=== PATIENT | female | born 1970 | race Caucasian/White ===

== ENCOUNTER 2019-07-02 15:03 | Emergency (ER) | payer BC ==
[2019-07-02 15:08] VITALS: BP 159/90; PULSE 91; RESP 20; TEMP 97.9
[2019-07-02] MEDS ORDERED: PENICILLIN VK 500MG STARTER 4 TAB BTL PO STA (15:17)
--- NOTE | 2019-07-02 15:18 | ED ---
General Adult HPI - General Chief complaint: Dental/Oral Stated complaint: Facial Swelling Time Seen by Provider: 07/02/19 15:10 Source: patient, RN notes reviewed Mode of arrival: ambulatory Limitations: no limitations - History of Present Illness Initial comments: 48-year-old female presents to the emergency department for a chief complaint of right-sided dental pain. This started yesterday. Patient states she woke up today however and it was swollen. Denies fever or chills. Denies swelling under the tongue. Denies difficulty swallowing. Denies any neck stiffness.Patient has no other complaints at this time including shortness of breath, chest pain, abdominal pain, nausea or vomiting, headache, or visual changes. - Related Data Previous Rx's Medication Instructions Recorded Penicillin V Potassium [Pen Vee K] 500 mg PO Q6H 10 Days #40 tablet 07/02/19 Allergies Allergy/AdvReac Type Severity Reaction Status Date / Time codeine Allergy Nausea & Verified 07/02/19 15:08 Vomiting & Diarrhea Review of Systems ROS Statement: Those systems with pertinent positive or pertinent negative responses have been documented in the HPI. ROS Other: All systems not noted in ROS Statement are negative. Past Medical History Past Medical History: Cancer History of Any Multi-Drug Resistant Organisms: None Reported Past Surgical History: Breast Surgery Past Psychological History: Anxiety Smoking Status: Current every day smoker Past Alcohol Use History: None Reported Past Drug Use History: Marijuana General Exam Limitations: no limitations General appearance: alert, in no apparent distress Head exam: Present: atraumatic, normocephalic, normal inspection Eye exam: Present: normal appearance, PERRL, EOMI. Absent: scleral icterus, conjunctival injection, periorbital swelling ENT exam: Present: normal exam, mucous membranes moist, TM's normal bilaterally, normal external ear exam, other (patient has a an area of local edema along the R side mandible). Absent: normal oropharynx (tooth 29 tenderness. There is no abscess palpated.) Neck exam: Present: normal inspection, full ROM. Absent: tenderness, meningismus Respiratory exam: Present: normal lung sounds bilaterally. Absent: respiratory distress, wheezes, rales, rhonchi, stridor Cardiovascular Exam: Present: regular rate, normal rhythm, normal heart sounds. Absent: systolic murmur, diastolic murmur, rubs, gallop, clicks Neurological exam: Present: alert Psychiatric exam: Present: normal affect, normal mood Course Vital Signs 07/02/19 15:05 Temperature 97.9 F Pulse Rate 91 Respiratory 20 Rate Blood Pressure 159/90 O2 Sat by Pulse 97 Oximetry Medical Decision Making - Medical Decision Making 48-year-old female presents for right-sided dental pain. Patient has had this pain since yesterday. Noticed swelling today. On examination patient has tenderness to tooth 29 however no abscess is palpated along the gumline. There is no sublingual edema. No neck stiffness. No trismus. Patient was started on penicillin. She was given a dose here in the emergency department. I did discuss that if symptoms do not improve within 24-48 hours she needs to return to the emergency department. Otherwise she is to follow-up with her doctor and dentist as soon as possible.I discussed this case with attending Dr. Lopez who agrees with this assessment and treatment plan. Disposition Clinical Impression: Pain, dental Disposition: HOME SELF-CARE Condition: Good Instructions (If sedation given, give patient instructions): Toothache (ED) Additional Instructions: Please take penicillin as directed. Follow-up with dentist in 1-2 days. Take Motrin and tylenol for pain. Ice the area. Return to the emergency department if you develop any worsening symptoms, high fevers, or symptoms are not improving after 48 hours of antibiotic therapy. Prescriptions: Penicillin V Potassium [Pen Vee K] 500 mg PO Q6H 10 Days #40 tablet Is patient prescribed a controlled substance at d/c from ED?: No Referrals: Sunday May MD [Primary Care Provider] - 1-2 days Time of Disposition: 15:17
== END 2019-07-02 15:25 | disposition home or self-care (01) ==
LOC: EC 15:03
DX: K08.89 Other specified disorders of teeth and supporting structures (principal); R22.0 Localized swelling, mass and lump, head; F17.200 Nicotine dependence, unspecified, uncomplicated; Z88.5 Allergy status to narcotic agent; Z85.3 Personal history of malignant neoplasm of breast; Z98.890 Other specified postprocedural states
CPT/HCPCS: 99283

== ENCOUNTER 2019-07-02 19:08 | Observation (INO) | payer BC ==
[2019-07-02] MEDS ORDERED: KETOROLAC 30 MG/ML 1 ML VIAL IVP STA (20:31)
--- NOTE | 2019-07-02 20:37 | ED ---
Recheck HPI - General Chief Complaint: Recheck/Abnormal Lab/Rx Stated Complaint: facial swelling-revisit Time Seen by Provider: 07/02/19 20:25 Source: patient, RN notes reviewed Mode of arrival: ambulatory Limitations: no limitations - History of Present Illness Initial Comments: Is a 48-year-old female who was here earlier today and diagnosed with a dental infection who took 2 doses of her penicillin less far but states the pain is getting worse and this was getting worse and also she's having some trouble because of pain in her throat now radiating down her around to her neck on the right side. She's had some chills no overt fevers sweats she states she had a filling that fell out of a tooth the tooth cracked she has not had any trouble until last day or so. The current modifying factors at this time - Related Data Home Medications Medication Instructions Recorded Confirmed Acetaminophen Tab [Tylenol Tab] 1,000 mg PO Q4H PRN 07/02/19 07/02/19 Previous Rx's Medication Instructions Recorded Penicillin V Potassium [Pen Vee K] 500 mg PO Q6H 10 Days #40 tablet 07/02/19 Allergies Allergy/AdvReac Type Severity Reaction Status Date / Time codeine AdvReac Nausea & Verified 07/02/19 22:56 Vomiting & Diarrhea Review of Systems ROS Statement: Those systems with pertinent positive or pertinent negative responses have been documented in the HPI. ROS Other: All systems not noted in ROS Statement are negative. Past Medical History Past Medical History: Cancer Additional Past Medical History / Comment(s): Breast CA stage 4 History of Any Multi-Drug Resistant Organisms: None Reported Past Surgical History: Breast Surgery Past Psychological History: Anxiety Smoking Status: Current every day smoker Past Alcohol Use History: None Reported Past Drug Use History: Marijuana General Exam - General Exam Comments Initial Comments: This is a well-developed asthenic appearing female who is awake alert oriented 3 Limitations: no limitations General appearance: alert, anxious, in distress Head exam: Present: atraumatic, normocephalic, normal inspection Eye exam: Present: normal appearance, PERRL, EOMI. Absent: scleral icterus, conjunctival injection, periorbital swelling ENT exam: Present: other (No discrete abscess is seen there is marked erythema and tenderness around tooth number fracture she had a tooth #30 no overt drainage. Erythema seen to the right mandible with tenderness palpation does seem to incorporate the submandibular space) Neck exam: Present: tenderness, full ROM, lymphadenopathy, other (No stridor JVD or bruits) Respiratory exam: Present: normal lung sounds bilaterally. Absent: respiratory distress, wheezes, rales, rhonchi, stridor Cardiovascular Exam: Present: regular rate, normal rhythm, normal heart sounds. Absent: systolic murmur, diastolic murmur, rubs, gallop, clicks GI/Abdominal exam: Present: soft, normal bowel sounds. Absent: distended, tenderness, guarding, rebound, rigid Extremities exam: Present: normal inspection, full ROM, normal capillary refill. Absent: tenderness, pedal edema, joint swelling, calf tenderness Back exam: Present: normal inspection Neurological exam: Present: alert, oriented X3, CN II-XII intact Psychiatric exam: Present: normal affect, normal mood Skin exam: Present: warm, dry, intact, normal color. Absent: rash Course Vital Signs 07/02/19 07/02/19 20:01 23:15 Temperature 99.7 F H 99.5 F Pulse Rate 90 84 Respiratory 18 18 Rate Blood Pressure 135/82 134/72 O2 Sat by Pulse 99 97 Oximetry Medical Decision Making - Medical Decision Making I did discuss Pf[employer] the patient and family as well as with Dr. Vick patient will be admitted place an IV antibiotics fluids as well as consultation by oral surgery. - Lab Data Result diagrams: 07/02/19 21:10 07/02/19 21:10 Lab Results 07/02/19 07/02/19 07/02/19 Range/Units 21:10 21:10 21:10 WBC 15.8 H (3.8-10.6) k/uL RBC 4.45 (3.80-5.40) m/uL Hgb 14.4 (11.4-16.0) gm/dL Hct 44.0 (34.0-46.0) % MCV 98.9 (80.0-100.0) fL MCH 32.3 (25.0-35.0) pg MCHC 32.7 (31.0-37.0) g/dL RDW 12.3 (11.5-15.5) % Plt Count 304 (150-450) k/uL Neutrophils % 85 % Lymphocytes % 8 % Monocytes % 4 % Eosinophils % 1 % Basophils % 0 % Neutrophils # 13.4 H (1.3-7.7) k/uL Lymphocytes # 1.3 (1.0-4.8) k/uL Monocytes # 0.7 (0-1.0) k/uL Eosinophils # 0.2 (0-0.7) k/uL Basophils # 0.0 (0-0.2) k/uL Sodium 137 (137-145) mmol/L Potassium 4.2 (3.5-5.1) mmol/L Chloride 103 (98-107) mmol/L Carbon Dioxide 25 (22-30) mmol/L Anion Gap 9 mmol/L BUN 10 (7-17) mg/dL Creatinine 0.74 (0.52-1.04) mg/dL Est GFR (CKD-EPI)AfAm >90 (>60 ml/min/1.73 sqM) Est GFR (CKD-EPI)NonAf >90 (>60 ml/min/1.73 sqM) Glucose 105 H (74-99) mg/dL Plasma Lactic Acid Benny 1.0 (0.7-2.0) mmol/L Calcium 10.0 (8.4-10.2) mg/dL Total Bilirubin 0.8 (0.2-1.3) mg/dL AST 23 (14-36) U/L ALT 12 (4-34) U/L Alkaline Phosphatase 79 (38-126) U/L Total Protein 7.7 (6.3-8.2) g/dL Albumin 4.7 (3.5-5.0) g/dL - Radiology Data Radiology results: report reviewed, image reviewed (I did review the imaging and report no evidence of abscess or is evidence of cellulitis) Disposition Clinical Impression: Facial cellulitis, Gingivitis, Fractured tooth, Failure of outpatient treatment Disposition: ADMITTED IP TO THIS [facility] Condition: Fair Referrals: Sunday May MD [Primary Care Provider] - 1-2 days
[2019-07-02 21:33] LABS: Basophils % (A) 0 %; Eosinophils # (A) 0.2 k/uL (0-0.7); Eosinophils % (A) 1 %; HGB 14.4 gm/dL (11.4-16.0); Lymphocytes # (A) 1.3 k/uL (1.0-4.8); Lymphocytes % (A) 8 %; MCH 32.3 pg (25.0-35.0); MCHC 32.7 g/dL (31.0-37.0); MCV 98.9 fL (80.0-100.0); Mean Platelet Volume 7.5; Monocytes # (A) 0.7 k/uL (0-1.0); Monocytes % (A) 4 %; Neutrophils # (A) 13.4 k/uL (1.3-7.7); Neutrophils % (A) 85 %; Platelet Count 304 k/uL (150-450); RBC 4.45 m/uL (3.80-5.40); RDW 12.3 % (11.5-15.5); WBC 15.8 k/uL (3.8-10.6)
[2019-07-02 21:38] LABS: ALT 12 U/L (4-34); AST 23 U/L (14-36); African American GFR (CKD) >90 (>60 ml/min/1.73 sqM); Albumin 4.7 g/dL (3.5-5.0); Alkaline Phosphatase 79 U/L (38-126); Anion Gap 9 mmol/L; Blood Urea Nitrogen 10 mg/dL (7-17); Carbon Dioxide 25 mmol/L (22-30); Chloride 103 mmol/L (98-107); Glucose 105 mg/dL (74-99); Non-African American GFR(CKD) >90 (>60 ml/min/1.73 sqM); Potassium 4.2 mmol/L (3.5-5.1); Sodium 137 mmol/L (137-145); Total Bilirubin 0.8 mg/dL (0.2-1.3); Total Protein 7.7 g/dL (6.3-8.2)
--- NOTE | 2019-07-02 22:52 | CT ---
EXAMINATION TYPE: CT facial bones wo con DATE OF EXAM: 07/02/2019 COMPARISON: None HISTORY: swelling to right side of jaw CT DLP: 363.2 mGycm Automated exposure control for dose reduction was used. Multiple axial sections were obtained from the top of the frontal sinuses to the bottom of the mandib le without contrast. There is soft tissue swelling in the right submandibular region. There are enlarged lymph nodes that measure up to 1 cm. There is subcutaneous edema in the right submandibular region. The submandibular salivary glands are fairly symmetric. The parotid glands are fairly symmetric. The mandibular ring is intact. I see no bony destructive process. Temporomandibular joints appear nor mal. There is almost complete opacification of the right maxillary sinus. There is no evidence of a b lowout fracture. Orbital margins are intact. There is no evidence of retro-orbital mass. The nasal carl ne is intact. There is some mucosal thickening in the ethmoid sinuses. Left maxillary sinus is fairly normal. The maxilla is intact. I see no focal bone destruction. There is normal aeration of the mast oid sinuses. IMPRESSION: There is right side submandibular lymphadenopathy and subcutaneous edema consistent with cellulitis. No focal bone destruction. No evidence of an abscess. Right maxillary sinusitis and mild ethmoid sinusitis.
[2019-07-02] MEDS ORDERED: NALOXONE 0.4 MG/ML 1 ML VIAL IV PRN (23:29)
[2019-07-03] MEDS ORDERED: IBUPROFEN 400 MG TAB PO PRN
[2019-07-03] MEDS: SODIUM CHLORIDE 0.9% 1,000 ML IV SCH ×3 (01:38→16:01)
[2019-07-03] MEDS: KETOROLAC 30 MG/ML 1 ML VIAL IVP SCH ×3 (08:28→22:33)
[2019-07-03] MEDS ORDERED: IPRATROPIUM-ALBUTEROL 3 ML NEB INHALATION PRN (09:38)
[2019-07-03] MEDS: AMPICILLIN-SULBACTAM 3 GM in SODIUM CHLORIDE 0.9% 100 ML IVPB SCH ×2 (10:37→17:14)
--- NOTE | 2019-07-03 13:12 | P.HPIM ---
History of Present Illness H&P Date: 07/03/19 Chief Complaint: facial swelling and pain This is a 48-year-old female patient of Dr. Gilliland with past medical history of breast cancer stage IV status post lumpectomy, chemotherapy and radiation in 2007, tobacco use and dependence. Patient states that she lost all of her upper teeth during chemotherapy treatment. She denies having any significant problems with her teeth recently but noticed that she had a toothache since Monday. She was taking Tylenol and Motrin. She woke up yesterday and she has significant swelling and pain was significantly worse to t he right lower jaw area. She came into the emergency center was given prescription for penicillin and was discharged home. By 6 in the morning her swelling and pain became much worse she was having chills and she came back to the emergency center for evaluation. Patient has been afebrile, vital signs stable, pulse ox 99% on room air. WBC 15.8 otherwise lab work unremarkable. Lactic acid 1. CAT scan of the facial bones revealed a right side submandibular lymphadenopathy and subcutaneous edema consistent with cellulitis. No focal bone destruction. No evidence of an abscess. Patient was initially started on Kefzol which we have transitioned to Unasyn and patient is waiting for [facility] bed. Patient is seen today in the emergency center. Review of Systems Constitutional: Reports chills, Reports fatigue, Reports fever, Reports lethargy, Reports malaise, Reports poor appetite Eyes: denies blurred vision, denies pain Ears, nose, mouth and throat: Reports dental pain, Reports mouth pain, Reports swelling in mouth, Denies dysphagia, Denies nasal congestion, Denies nasal discharge, Denies vertigo Cardiovascular: Denies chest pain, Denies decreased exercise tolerance, Denies dyspnea on exertion, Denies leg edema, Denies lightheadedness, Denies shortness of breath, Denies syncope Respiratory: Reports wheezing, Denies cough, Denies cough with sputum, Denies dyspnea, Denies excessive sputum, Denies hemoptysis, Denies home oxygen, Denies respiratory infections Gastrointestinal: Denies abdominal pain, Denies diarrhea, Denies nausea, Denies vomiting Genitourinary: Denies dysuria, Denies hematuria, Denies urgency, Denies urinary frequency Musculoskeletal: Denies frequent falls, Denies gait dysfunction, Denies myalgias Integumentary: Denies pruritus, Denies rash Neurological: Denies numbness, Denies weakness Psychiatric: Denies anxiety, Denies depression Past Medical History Past Medical History: Cancer Additional Past Medical History / Comment(s): Breast CA stage 4 History of Any Multi-Drug Resistant Organisms: None Reported Past Surgical History: Breast Surgery Additional Past Surgical History / Comment(s): Lumpectomy in 2008 status post ch emotherapy and radiation therapy. Past Psychological History: Anxiety Smoking Status: Current every day smoker Past Alcohol Use History: None Reported Additional Past Alcohol Use History / Comment(s): Patient is a smoker of more than 1 pack per day for greater than 30 years. She uses marijuana on a daily basis. She denies any street drug use or alcohol use. She lives at home with her . She is unemployed. Past Drug Use History: Marijuana - Past Family History Father Family Medical History: Cancer Additional Family Medical History / Comment(s): Father at age 70 due to Kidney cancer. Parkinsons Hx. Mother Additional Family Medical History / Comment(s): Mother is alive at age 80 with no major medical problems. Brother(s) Additional Family Medical History / Comment(s): Patient has one brother with history of asthma. Patient does not have any sisters. Patient doesn't have any children. Medications and Allergies Home Medications Medication Instructions Recorded Confirmed Type Acetaminophen Tab [Tylenol Tab] 1,000 mg PO Q4H PRN 07/02/19 07/02/19 History Penicillin V Potassium [Pen Vee K] 500 mg PO Q6H 10 Days #40 tablet 07/02/19 07/02/19 Rx Allergies Allergy/AdvReac Type Severity Reaction Status Date / Time codeine AdvReac Nausea & Verified 07/02/19 22:56 Vomiting & Diarrhea Physical Exam Vitals: Vital Signs Temp Pulse Pulse Resp BP BP Pulse Ox 07/03/19 08:00 98.5 F 86 16 131/89 07/03/19 04:00 99.7 F H 86 17 142/79 97 07/02/19 23:15 99.5 F 84 18 134/72 97 07/02/19 20:01 99.7 F H 90 18 135/82 99 Intake and Output 07/02/19 07/03/19 07/03/19 22:59 06:59 14:59 Other: Voiding Method Toilet Weight 47.627 kg Gen: This is a thin 48-year-old female. She is resting on his bed in the hallway in the emergency center. She appears to be somewhat uncomfortable due to pain in the jaw area. HEENT: Head is atraumatic, normocephalic. Pupils equal, round. Sclerae is anicteric. Conjunctiva pink. Mucous membranes of the mouth are moist. Patient has significant swelling to the right posterior mandibular area. No drainage or open wounds are noted. Patient is edentulous on the top. NECK: Supple. No JVD. No lymphadenopathy. No thyromegaly. LUNGS: Scattered rhonchi and expiratory wheeze. No intercostal retractions. HEART: Regular rate and rhythm. No murmur. ABDOMEN: Soft. Bowel sounds are present. No masses. No tenderness. EXTREMITIES: No pedal edema. No calf tenderness. Dorsalis pedis +2 bilaterally. NEUROLOGICAL: Patient is awake, alert and oriented x3. Cranial nerves 2 through 12 are grossly intact. Results CBC & Chem 7: 07/02/19 21:10 07/02/19 21:10 Labs: Abnormal Lab Results - Last 24 Hours (Table) 07/02/19 07/02/19 Range/Units 21:10 21:10 WBC 15.8 H (3.8-10.6) k/uL Neutrophils # 13.4 H (1.3-7.7) k/uL Glucose 105 H (74-99) mg/dL Thrombosis Risk Factor Assmnt - DVT/VTE Prophylaxis DVT/VTE Prophylaxis: Pharmacologic Prophylaxis ordered Assessment and Plan Plan: 1. Cellulitis of the right submandibular area. No drainable abscess found on CAT scan. Consult with oral surgeon. Antibiotics changed to Unasyn. Patient will be started on a soft diet as tolerated. Continue Toradol IV scheduled for pain. 2. History of stage IV breast cancer status post lumpectomy, chemotherapy and radiation therapy, stable. 3. Tobacco use and dependence of greater than [id number] history. Patient denies need for nicotine patch. Dual treatments ordered as needed. 4. Daily marijuana use, stable. 5. GI prophylaxis. Pepcid. 6. DVT prophylaxis. Heparin subcu. Patient placed as an observation status. Discharge plan: Return home Impression and plan of care have been directed as dictated by the signing physi cian. Francie Felipe nurse practitioner acting as scribe for signing physician.
[2019-07-03] MEDS: DEXAMETHASONE SOD PHOSPHATE 10 MG/ML 1 ML VIAL IV SCH (18:11)
--- NOTE | 2019-07-03 22:05 | CONS ---
CONSULTATION DATE OF CONSULT: 07/03/2019. CHIEF COMPLAINT: My face is swollen. HISTORY OF PRESENT ILLNESS: The patient is a 48-year-old female who states that she had a toothache in the lower right jaw approximately 3 days ago, which slowly increased and yesterday she woke up with swelling to the right mandible which progressed. She then presented to the emergency room where she was evaluated and admitted. The patient states that the area had increased in severity rather quickly. She is complaining of odynophagia. She is currently afebrile. PAST MEDICAL HISTORY: Significant for breast cancer treated in 2007. MEDICATIONS: Currently she is on IV Unasyn. ALLERGIES: Allergies none. PHYSICAL EXAM: The patient is resting in bed comfortably. Her vital signs are stable. She is afebrile. She is alert and oriented x3. Head and neck examination reveals moderate soft tissue swelling of the right mandible which is extending into the submandibular region. The area is tender to palpation. It is firm. There is no fluctuance. Intraorally, tooth #30 has a large carious lesion and there is a buccal vestibular swelling in addition to swelling in the floor of the mouth. The pharyngeal exam is limited, however, there does not appear to be any deviation of the uvula. A CT scan reveals cellulitis of the right mandibular and submandibular region without any focal collection. Her white count is 15.8. ASSESSMENT: 1. Abscessed tooth #30. 2. Right buccal and submandibular space cellulitis. PLAN: The patient is to apply heat to the area. She is to be on a soft diet and continue on the IV Unasyn. I have ordered Decadron 10 mg IV push q.8 hours x3. The patient will be re-evaluated tomorrow. I anticipate discharge on Monday directly to my office for the extraction of tooth #30. MMODL / IJN: [id number] /
[2019-07-03] MEDS: HEPARIN SODIUM,PORCINE 5,000 UNIT/ML 1 ML VIAL SQ SCH (22:35)
[2019-07-04] MEDS: AMPICILLIN-SULBACTAM 3 GM in SODIUM CHLORIDE 0.9% 100 ML IVPB SCH ×3 (00:58→15:44)
[2019-07-04] MEDS: DEXAMETHASONE SOD PHOSPHATE 10 MG/ML 1 ML VIAL IV SCH ×2 (01:02→07:40)
[2019-07-04] MEDS: KETOROLAC 30 MG/ML 1 ML VIAL IVP SCH ×4 (02:18→23:00)
[2019-07-04] MEDS: FAMOTIDINE 20 MG TAB PO SCH (07:39)
[2019-07-04] MEDS: HEPARIN SODIUM,PORCINE 5,000 UNIT/ML 1 ML VIAL SQ SCH ×2 (07:40→23:00)
[2019-07-04 08:46] LABS: MCHC 32.6 g/dL (31.0-37.0); MCV 101.2 fL (80.0-100.0); Mean Platelet Volume 7.4; Platelet Count 321 k/uL (150-450); RBC 4.25 m/uL (3.80-5.40); RDW 12.4 % (11.5-15.5)
[2019-07-04] MEDS: SODIUM CHLORIDE 0.9% 1,000 ML IV SCH (12:02)
--- NOTE | 2019-07-04 16:03 | P.PN ---
Subjective Progress Note Date: 07/04/19 This is a 48-year-old female patient of Dr. Gilliland with past medical history of breast cancer stage IV status post lumpectomy, chemotherapy and radiation in 2007, tobacco use and dependence. Patient states that she lost all of her upper teeth during chemotherapy treatment. She denies having any significant problems with her teeth recently but noticed that she had a toothache since Monday. She was taking Tylenol and Motrin. She woke up yesterday and she has significant swelling and pain was significantly worse to the right lower jaw area. She came into the emergency center was given pr escription for penicillin and was discharged home. By 6 in the morning her swelling and pain became much worse she was having chills and she came back to the emergency center for evaluation. Patient has been afebrile, vital signs stable, pulse ox 99% on room air. WBC 15.8 otherwise lab work unremarkable. Lactic acid 1. CAT scan of the facial bones revealed a right side submandibular lymphadenopathy and subcutaneous edema consistent with cellulitis. No focal bone destruction. No evidence of an abscess. Patient was initially started on Kefzol which we have transitioned to Unasyn and patient is waiting for [facility] bed. Patient is seen today in the emergency center. 07/04: Patient has been seen by Dr. Conklin with recommendations continue another 24 hours of IV antibiotics and he is planning for extraction of a tooth on Monday in the office. He is also place the patient on Decadron and continue soft diet. Blood culture showing coag negative staph which is a contamination. Repeat lab work reveals white count of 15. She has been afebrile, heart rate 85, blood pressure 131/71 pulse ox 96% on room air. Patient has had significant improvement of the facial swelling since first evaluated in the emergency center. Anticipate discharge home tomorrow as planned with oral surgeon with follow-up in the office. Review of Systems Constitutional: Reports chills, Reports fatigue, Reports fever, Reports lethargy, Reports malaise, Reports poor appetite Eyes: denies blurred vision, denies pain Ears, nose, mouth and throat: Reports dental pain improving, Reports mouth pain, Reports swelling in mouth, Denies dysphagia, Denies nasal congestion, Denies nasal discharge, Denies vertigo Cardiovascular: Denies chest pain, Denies decreased exercise tolerance, Denies dyspnea on exertion, Denies leg edema, Denies lightheadedness, Denies shortness of breath, Denies syncope Respiratory: Reports wheezing, Denies cough, Denies cough with sputum, Denies dyspnea, Denies excessive sputum, Denies hemoptysis, Denies home oxygen, Denies respiratory infections Gastrointestinal: Denies abdominal pain, Denies diarrhea, Denies nausea, Denies vomiting Genitourinary: Denies dysuria, Denies hematuria, Denies urgency, Denies urinary frequency Musculoskeletal: Denies frequent falls, Denies gait dysfunction, Denies myalgias Integumentary: Denies pruritus, Denies rash Neurological: Denies numbness, Denies weakness Psychiatric: Denies anxiety, Denies depression Objective - Vital Signs Vital signs: Vital Signs Temp 98.0 F 07/04/19 14:24 Pulse 85 07/04/19 14:24 Resp 17 07/04/19 14:24 BP 131/71 07/04/19 14:24 Pulse Ox 96 07/04/19 14:24 Intake & Output 07/03/19 07/04/19 07/04/19 18:59 06:59 18:59 Intake Total 710 700 500 Balance 710 700 500 Weight 47.627 kg Intake: IV 500 500 Ampicillin-Sulbactam 3 gm 100 100 In Sodium Chloride 0.9% 100 ml @ 200 mls/hr IVPB Q8HR [facility] Rx#:[id number] Sodium Chloride 0.9% 1, 400 400 000 ml @ 50 mls/hr IV . Q20H [facility] Rx#:[id number] Intake, IV Titration 710 Amount Ampicillin-Sulbactam 3 gm 100 In Sodium Chloride 0.9% 100 ml @ 200 mls/hr IVPB Q8HR [facility] Rx#:[id number] Sodium Chloride 0.9% 1, 560 000 ml @ 80 mls/hr IV . [id number] [facility] Rx#:[id number] ceFAZolin 1,000 mg In 50 Sodium Chloride 0.9% 50 ml @ 100 mls/hr IVPB Q6H [facility] Rx#:[id number] Oral 200 Other: Voiding Method Toilet Toilet Toilet # Voids 1 - Exam Gen: This is a thin 48-year-old female. She is resting in bed in her room and appears to be comfortable.. HEENT: Head is atraumatic, normocephalic. Pupils equal, round. Sclerae is anicteric. Conjunctiva pink. Mucous membranes of the mouth are moist. Swelling to the right mandibular submandibular region is much improved from . NECK: Supple. No JVD. No lymphadenopathy. No thyromegaly. LUNGS: Scattered rhonchi and expiratory wheeze. No intercostal retractions. HEART: Regular rate and rhythm. No murmur. ABDOMEN: Soft. Bowel sounds are present. No masses. No tenderness. EXTREMITIES: No pedal edema. No calf tenderness. Dorsalis pedis +2 bilaterally. NEUROLOGICAL: Patient is awake, alert and oriented x3. Cranial nerves 2 through 12 are grossly intact. - Labs CBC & Chem 7: 07/04/19 08:23 07/02/19 21:10 Labs: Abnormal Lab Results - Last 24 Hours (Table) 07/04/19 Range/Units 08:23 WBC 15.0 H (3.8-10.6) k/uL MCV 101.2 H (80.0-100.0) fL Microbiology - Last 24 Hours (Table) 07/02/19 21:10 Blood Culture - Final Blood 07/02/19 21:10 Blood Culture Gram Stain - Preliminary Blood Blood Culture - Preliminary Coagulase Negative Staph Assessment and Plan Plan: 1. Cellulitis of the right submandibular area. No drainable abscess found on CAT scan. Consult with oral surgeon appreciated. Continue Unasyn. Patient will be started on a soft diet as tolerated. Continue Toradol IV scheduled for pain. 2. History of stage IV breast cancer status post lumpectomy, chemotherapy and radiation therapy, stable. 3. Tobacco use and dependence of greater than 88-[id number] history. Patient denies need for nicotine patch. Dual treatments ordered as needed. 4. Daily marijuana use, stable. 5. GI prophylaxis. Pepcid. 6. DVT prophylaxis. Heparin subcu. Discharge plan: Return home on Monday Impression and plan of care have been directed as dictated by the signing physician. Francie Felipe nurse practitioner acting as scribe for signing physician.
[2019-07-05] MEDS: AMPICILLIN-SULBACTAM 3 GM in SODIUM CHLORIDE 0.9% 100 ML IVPB SCH ×2 (00:36→08:30)
[2019-07-05] MEDS: KETOROLAC 30 MG/ML 1 ML VIAL IVP SCH ×2 (04:44→08:31)
[2019-07-05 04:57] VITALS: BP 147/87; PULSE 70; RESP 18; TEMP 98.2
[2019-07-05] MEDS: SODIUM CHLORIDE 0.9% 1,000 ML IV SCH (06:22)
--- NOTE | 2019-07-05 08:24 | P.DS ---
Providers Date of admission: 07/04/19 09:02 Expected date of discharge: 07/05/19 Attending physician: Adrianne Vick Consults: 07/02/19 23:29 Consult Physician Routine Consulting Provider: Benito Conklin Consult Reason/Comments: Tooth fracture, gingivitis, facial cellulitis Do you want consulting provider notified?: Yes, Notify in am Primary care physician: [facility] Course: This is a 48-year-old female patient of Dr. Gilliland with past medical history of breast cancer stage IV status post lumpectomy, chemotherapy and radiation in 2007, tobacco use and dependence. Patient states that she lost all of her upper teeth during chemotherapy treatment. She denies having any significant problems with her teeth recently but noticed that she had a tooth ache since Monday. She was taking Tylenol and Motrin. She woke up yesterday and she has significant swelling and pain was significantly worse to the right lower jaw area. She came into the emergency center was given prescription for penicillin and was discharged home. By 6 in the morning her swelling and pain became much worse she was having chills and she came back to the emergency center for evaluation. Patient has been afebrile, vital signs stable, pulse ox 99% on room air. WBC 15.8 otherwise lab work unremarkable. Lactic acid 1. CAT scan of the facial bones revealed a right side submandibular lymphadenopathy and subcutaneous edema consistent with cellulitis. No focal bone destruction. No evidence of an abscess. Patient was initially started on Kefzol which we have transitioned to Unasyn and patient is waiting for [facility] bed. Patient is seen today in the emergency center. 07/04: Patient has been seen by Dr. Conklin with recommendations continue another 24 hours of IV antibiotics and he is planning for extraction of a tooth on Monday in the office. He is also place the patient on Decadron and continue soft diet. Blood culture showing coag negative staph which is a contamination. Repeat lab work reveals white count of 15. She has been afebrile, heart rate 85, blood pressure 131/71 pulse ox 96% on room air. Patient has had significant improvement of the facial swelling since first evaluated in the emergency center. Anticipate discharge home tomorrow as planned with oral surgeon with follow-up in the office. 07/05: Patient has been afebrile, heart rate 70, blood pressure 147/87, pulse ox 100% on room air. Patient has been seen by Dr. Conklin with plan for him to extract tooth in the office today. Patient will be discharged home today in stable condition. Discharge diagnoses: 1. Cellulitis of the right submandibular area secondary to abscessed tooth. 2. History of stage IV breast cancer status post lumpectomy, chemotherapy and radiation therapy, stable. 3. Tobacco use and dependence of greater than 67-lfua-otad history. 4. Daily marijuana use, stable. Discharge plan: Home today with follow-up at Dr. Conklin's office this morning. Impression and plan of care have been directed as dictated by the signing physician. Francie Felipe nurse practitioner acting as scribe for signing physician. Patient Condition at Discharge: Fair Plan - Discharge Summary Discharge Rx Participant: No New Discharge Prescriptions: New Amoxicillin/Potassium Clav [Augmentin 875-125 Tablet] 1 each PO Q12HR #10 tab Discontinued Penicillin V Potassium [Pen Vee K] 500 mg PO Q6H 10 Days #40 tablet No Action Acetaminophen Tab [Tylenol Tab] 1,000 mg PO Q4H PRN PRN Reason: Pain Discharge Medication List Acetaminophen Tab [Tylenol Tab] 1,000 mg PO Q4H PRN 07/02/19 [History] Amoxicillin/Potassium Clav [Augmentin 875-125 Tablet] 1 each PO Q12HR #10 tab 07/05/19 [Rx] Follow up Appointment(s)/Referral(s): Sunday May MD [Primary Care Provider] - 1 Week Benito Conklin DDS [STAFF PHYSICIAN] - 07/05/19 (as scheduled) Discharge Disposition: HOME SELF-CARE
[2019-07-05] MEDS: HEPARIN SODIUM,PORCINE 5,000 UNIT/ML 1 ML VIAL SQ SCH (08:30)
[2019-07-05] MEDS: FAMOTIDINE 20 MG TAB PO SCH (08:30)
== END 2019-07-05 10:47 | disposition home or self-care (01) ==
LOC: EC 19:08 → UNDOADMOB 23:29 → 4SSUR 23:29 → UNDODISOB 07-03 10:15 → 6NMEDSUR 07-03 14:01 → OBSVTOIN 07-04 09:02 → INTOOBSV 07-04 09:02 → UNDODISIN 07-05 10:47
PROVIDERS: ADMIT Internal Medicine; ATTEND Internal Medicine
DX: K12.2 Cellulitis and abscess of mouth (principal); K04.7 Periapical abscess without sinus; K05.10 Chronic gingivitis, plaque induced; K03.81 Cracked tooth; K08.499 Partial loss of teeth due to other specified cause, unspecified class; F17.210 Nicotine dependence, cigarettes, uncomplicated; F41.9 Anxiety disorder, unspecified; J32.0 Chronic maxillary sinusitis; J32.2 Chronic ethmoidal sinusitis; Z85.3 Personal history of malignant neoplasm of breast; Z98.890 Other specified postprocedural states; Z92.21 Personal history of antineoplastic chemotherapy; Z88.5 Allergy status to narcotic agent; Z92.3 Personal history of irradiation; Z80.51 Family history of malignant neoplasm of kidney; Z82.0 Family history of epilepsy and other diseases of the nervous system; Z82.5 Family history of asthma and other chronic lower respiratory diseases
CPT/HCPCS: 96376 ×4; 96361 ×2; 96366 ×4; 96372 ×2; 96375 ×2; 96365; 96367; 99284; 36415; 80053; 83605; 85025; 85027; 87040; 87077; 87186; 70486; G0378 ×5; J1644 ×2; J1100 ×2; J0690 ×2; J1885 ×4; J0295 ×3; 99285

== ENCOUNTER 2021-02-14 13:59 | Emergency (ER) | payer BC ==
[2021-02-14 14:25] VITALS: BP 126/83; PULSE 92; RESP 16; TEMP 98.3
[2021-02-14] MEDS ORDERED: KETOROLAC 15 MG/ML 1 ML VIAL IM STA (14:38)
--- NOTE | 2021-02-14 15:37 | XR ---
EXAMINATION TYPE: XR lumbar spine 2 or 3V DATE OF EXAM: 02/14/2021 COMPARISON: NONE HISTORY: Back pain TECHNIQUE: 3 views FINDINGS: The lumbar vertebra have normal alignment. Posterior elements are intact. There is narrowin g at L5-S1 disc space. There is spurring of the endplates. Sacroiliac joints are intact. IMPRESSION: L5-S1 degenerative disc changes. No fracture.
--- NOTE | 2021-02-14 15:51 | ED ---
Back Pain HPI - General Chief Complaint: Back Pain/Injury Stated Complaint: lt sided pain Time Seen by Provider: 02/14/21 14:33 Source: patient, RN notes reviewed Limitations: physical limitation - History of Present Illness Initial Comments: Patient is a 50-year-old female that presents to emergency room complaining of left-sided low back pain with radiation of the left leg. She notes she does have a history of sciatica and thought it went away. But she notes that she might over done it yesterday walking outside and doing things wrong house. Patient notes that she does not have any saddle anesthesia bladder bowel incontinence/retention. She denied any injury or trauma. She is otherwise a well-appearing 50-year-old female in no apparent distress or pain. She denied chest pain shortness breath headache nausea vomiting diarrhea comes patient fever fatigue chills weakness numbness tingling in her bilateral lower extremities. - Related Data Home Medications Medication Instructions Recorded Confirmed Acetaminophen Tab [Tylenol Tab] 1,000 mg PO Q4H PRN 07/02/19 07/02/19 Previous Rx's Medication Instructions Recorded Amoxicillin/Potassium Clav 1 each PO Q12HR #10 tab 07/05/19 [Augmentin 875-125 Tablet] predniSONE 50 mg PO DAILY #5 tab 02/14/21 Allergies Allergy/AdvReac Type Severity Reaction Status Date / Time codeine AdvReac Nausea & Verified 02/14/21 14:25 Vomiting & Diarrhea Review of Systems ROS Statement: Those systems with pertinent positive or pertinent negative responses have been documented in the HPI. ROS Other: All systems not noted in ROS Statement are negative. Past Medical History Past Medical History: Cancer Additional Past Medical History / Comment(s): Breast CA stage 4 History of Any Multi-Drug Resistant Organisms: MRSA Date of last positivie culture/infection: 2007 MDRO Source:: left breast Past Surgical History: Breast Surgery Additional Past Surgical History / Comment(s): Lumpectomy in 2008 status post chemotherapy and radiation therapy. Past Anesthesia/Blood Transfusion Reactions: No Reported Reaction Past Psychological History: Anxiety Smoking Status: Current every day smoker Past Alcohol Use History: Rare Past Drug Use History: Marijuana - Past Family History Father Family Medical History: Cancer Additional Family Medical History / Comment(s): Father at age 70 due to Kidney cancer. Parkinsons Hx. Mother Additional Family Medical History / Comment(s): Mother is alive at age 80 with no major medical problems. Brother(s) Additional Family Medical History / Comment(s): Patient has one brother with history of asthma. Patient does not have any sisters. Patient doesn't have any children. General Exam Limitations: physical limitation General appearance: alert, in no apparent distress Head exam: Present: atraumatic, normocephalic, normal inspection Eye exam: Present: normal appearance, PERRL, EOMI. Absent: scleral icterus, conjunctival injection, periorbital swelling ENT exam: Present: normal exam, mucous membranes moist Neck exam: Present: normal inspection Respiratory exam: Present: normal lung sounds bilaterally. Absent: respiratory distress, wheezes, rales, rhonchi, stridor Cardiovascular Exam: Present: regular rate, normal rhythm, normal heart sounds. Absent: systolic murmur, diastolic murmur, rubs, gallop, clicks Extremities exam: Present: normal inspection, full ROM, normal capillary refill. Absent: tenderness, pedal edema, joint swelling, calf tenderness Back exam: Present: normal inspection. Absent: CVA tenderness (R), CVA tenderness (L) Neurological exam: Present: alert, oriented X3 Psychiatric exam: Present: normal affect, normal mood Skin exam: Present: warm, dry, intact, normal color. Absent: rash Course Vital Signs 02/14/21 14:21 Temperature 98.3 F Pulse Rate 92 Respiratory 16 Rate Blood Pressure 126/83 O2 Sat by Pulse 98 Oximetry Medical Decision Making - Medical Decision Making Patient is a 50-year-old female complaining of low back pain with radiation of the left leg. X-ray lumbar spine, 15 mg of Toradol ordered. X-ray negative for any acute fractures dislocations. Patient most likely expressing sciatica with radicular symptoms. Patient is agreeable discharge home with oral steroids sent to pharmacy pain on case discussed with Dr. Tuttle - Radiology Data Radiology results: report reviewed, image reviewed Lumbar spinous a: L5-S1 degenerative disc changes. No fracture. Disposition Clinical Impression: Mechanical back pain, Sciatica Disposition: HOME SELF-CARE Condition: Stable Instructions (If sedation given, give patient instructions): Acute Low Back Pain (ED) Additional Instructions: Please return to the Emergency Department if symptoms worsen or any other concerns. Prednisone sent to pharmacy. Follow-up primary care 1-2 days per Avoid any shortness activity or exercise. Is patient prescribed a controlled substance at d/c from ED?: No Referrals: Kory Oliveira DO [Primary Care Provider] - 1-2 days Time of Disposition: 15:50
== END 2021-02-14 16:04 | disposition home or self-care (01) ==
LOC: EC 13:59
DX: M54.42 Lumbago with sciatica, left side (principal); F41.9 Anxiety disorder, unspecified; F17.200 Nicotine dependence, unspecified, uncomplicated; F12.90 Cannabis use, unspecified, uncomplicated
CPT/HCPCS: 72100; 99283; 96372; J1885

== ENCOUNTER → 2021-03-05 | Outpatient (CLI) | payer BC ==
--- NOTE | 2021-03-05 14:05 | XR ---
EXAMINATION TYPE: XR Hip Complete LT DATE OF EXAM: 03/05/2021 COMPARISON: NONE HISTORY: Pain TECHNIQUE: 2 views submitted FINDINGS: There is no evidence of erosive change or acute fracture. IMPRESSION: 1. No evidence of acute fracture or dislocation.
--- NOTE | 2021-03-05 14:06 | XR ---
EXAMINATION TYPE: XR knee complete LT DATE OF EXAM: 03/05/2021 COMPARISON: NONE HISTORY: Pain TECHNIQUE: Three views are submitted. FINDINGS: Small suprapatellar bursal fluid collection. Mild narrowing of the medial compartment of the knee rukhsana nt and patellofemoral joint.. Osseous structures are intact. No acute fracture seen. IMPRESSION: 1. Mild arthropathy. Small amount of fluid in the suprapatellar bursa. Correlate with MRI as clinical ly warranted.
== END | disposition home or self-care (01) ==
LOC: RADXRMAIN 13:18
PROVIDERS: ATTEND Family Medicine
DX: M25.552 Pain in left hip (principal); M17.12 Unilateral primary osteoarthritis, left knee
CPT/HCPCS: 73502

== ENCOUNTER → 2021-11-24 | Outpatient (CLI) | payer BC ==
--- NOTE | 2021-11-24 15:48 | NM ---
EXAMINATION TYPE: NM bone scan whole body DATE OF EXAM: 11/24/2021 COMPARISON: X-ray dated 03/05/2001, 02/14/2021 HISTORY: Pain Delayed whole-body scanning was performed following the injection of 22.6 mCi Tc 99m MDP. Images acq uired 3 hours post injection. FINDINGS: Abnormal uptake involving the lumbar spine corresponds to x-ray evidence of degenerative disc disease . Abnormal uptake involving the shoulders likely post arthritic. IMPRESSION: Abnormal uptake involving the vertebral column appears degenerative.
== END | disposition home or self-care (01) ==
LOC: RADNMMAIN 10:25
PROVIDERS: ATTEND Orthopaedic Surgery Orthopaedic Surgery of the Spine
DX: M51.36 Other intervertebral disc degeneration, lumbar region (principal); R93.7 Abnormal findings on diagnostic imaging of other parts of musculoskeletal system
CPT/HCPCS: 78306; A9503

== ENCOUNTER → 2021-12-24 | Outpatient (CLI) | payer BC ==
--- NOTE | 2021-12-29 13:49 | US ---
EXAMINATION TYPE: US arterial LE single level DATE OF EXAM: 12/24/2021 8:54 AM CLINICAL HISTORY: M79.605 PAIN IN LT LEG. Pain. History of tobacco use and left-sided breast cancer. Doppler Waveforms: Right: Multiphasic Left: Multiphasic Ankle-Brachial Indices: Right: 1.11 Left: 1.22 Toe Brachial Indices: Right: 0.87 Left: 0.94 IMPRESSION: Normal study
== END | disposition home or self-care (01) ==
LOC: RADUSWWP 08:06
PROVIDERS: ATTEND Family Medicine
DX: M79.605 Pain in left leg (principal); Z85.3 Personal history of malignant neoplasm of breast; Z87.891 Personal history of nicotine dependence
CPT/HCPCS: 93922

== ENCOUNTER → 2022-04-27 | Outpatient (CLI) | payer BC ==
[2022-05-04 08:47] VITALS: BP 138/89; PULSE 78; RESP 18
== END ==
LOC: PNWHC3 13:10
PROVIDERS: ATTEND Specialist
DX: M54.42 Lumbago with sciatica, left side (principal); Z88.5 Allergy status to narcotic agent; F17.200 Nicotine dependence, unspecified, uncomplicated
CPT/HCPCS: 99211

== ENCOUNTER 2022-05-26 12:57 | Day surgery (SDC) | payer BC ==
[2022-05-26] MEDS ORDERED: LACTATED RINGERS 1,000 ML IV SCH (13:29)
[2022-05-26] MEDS ORDERED: LIDOCAINE 1% (10MG/ML) FOR IV START INTRADERMA PRN (13:29)
[2022-05-26] MEDS ORDERED: LACTATED RINGERS 1,000 ML IV ONE (13:37)
[2022-05-26 13:38] VITALS: TEMP 98
[2022-05-26] MEDS ORDERED: IOPAMIDOL M200 10 ML VIAL ONE (14:06)
[2022-05-26] MEDS ORDERED: MIDAZOLAM 2 MG/2 ML VIAL ONE (14:06)
[2022-05-26] MEDS ORDERED: methylPREDNISolone ACETATE 80 MG/ML 1 ML VIAL ONE (14:06)
--- NOTE | 2022-05-26 14:19 | P.PCN ---
Date of Procedure: 05/26/22 Procedure(s) Performed: PREOPERATIVE DIAGNOSIS: 1- Lumbar Degenerative Disc Diseases 2-Lumbar spondylosis with Facet arthropathy without myelopathy. 3-lumbar radiculopathy POSTOPERATIVE DIAGNOSIS: Same as preop diagnosis. PROCEDURE 1. Lumbar epidural steroid injection under fluoroscopic guidance at the L2-3 level.( left Paramedian approach ) (Fluoroscopy imaging was available in radiology department) 2. Lumbar epidurogram. ANESTHESIA: moderate sedation with intravenous Versed 2 mg. Sedation start time : 1411 Sedation end time : 141 EBL: Minimal PROCEDURE INDICATION: The patient with low back pain and radiculitis symptoms unresponsive to conservative treatment. Fluoroscopy was used to optimize visualization of the needle placement and to maximize safety. PROCEDURE DESCRIPTION / TECHNIQUE: The patient was seen and identified in the preoperative area. Risks, benefits, complications including but not limited to infections ,bleeding ,allergic reaction to the medications ,nerve damage and not complete pain releife , and alternatives were discussed with the patient. The patient agreed to proceed with the procedure and signed the consent. IV was started, and vital signs were stable. Patient was taken to the OR and time out was completed. The patient was placed in the prone position on procedure table and a pillow was placed under the abdomen to reduce lumbar lordosis. The lumbosacral area was prepped and draped in the usual sterile fashion.ere closely monitored during the procedure. Conscious sedation was used during the procedure to decrease patients anxiety. Vital signs was monitered during the entire procedure. Using anterior-posterior fluoroscopy, the L2-3 interlaminar space was identified and the skin over this site was marked and then infiltrated with 1% lidocaine subcutaneously. Subsequently, a 20-gauge Tuohy epidural needle was inserted left paramedian ,and advanced toward the epidural space using the ``Loss of resistance technique and guided by AP and lateral fluoroscopy. The correct needle position in the epidural space was verified with the injection of 2 mL of the water soluble contrast dye Isovue 300 contrast and observing an excellent epidurogram with the epidural spread of the dye, after negative aspiration for blood and CSF and in the absence of paresthesias. Again after negative aspiration, a 6 ml mixture containing 60 mg of Depo-medrol ( Preserve tive Free ), and 2 ml of preservative free Normal Saline, and 2 ml of preservative free lidocaine 1% solution was injected and a washout of epidurogram was seen. Needle was withdrawn intact, skin was cleansed, and bandages were applied. COMPLICATIONS: None DISPOSITION / PLANS: The patient was placed in a supine position and transferred to the recovery area in a stable condition for observation. There was no evidence of lower extremity motor or sensory deficit after the procedure. Patient was discharged from the recovery room after meeting discharge criteria. Home discharge instructions were given to the patient by the staff. The patient was reexamined prior to discharge. The patient will schedule a follow up in the clinic in 2-4 weeks.
[2022-05-26] MEDS ORDERED: IV FLUID CONTINUATION 900 ML IV ONE (14:20)
[2022-05-26 14:23] VITALS: RESP 16
--- NOTE | 2022-05-26 14:43 | FL ---
EXAMINATION TYPE: FL guided pain mgmt statistic DATE OF EXAM: 05/26/2022 HISTORY: Fluoroscopy time 1 seconds of fluoroscopy provided. IMPRESSION: 1. Fluoroscopy time.
[2022-05-26 15:02] VITALS: BP 123/74; PULSE 72
== END 2022-05-26 15:18 | disposition home or self-care (01) ==
LOC: ORPAIN 12:57
PROVIDERS: ATTEND Specialist
DX: M51.16 Intervertebral disc disorders with radiculopathy, lumbar region (principal); M47.26 Other spondylosis with radiculopathy, lumbar region; Z88.5 Allergy status to narcotic agent
CPT/HCPCS: 62323; J2250; J1040; Q9966

== ENCOUNTER → 2022-06-09 | Outpatient (CLI) | payer BC ==
[2022-06-09 14:37] VITALS: BP 132/89; PULSE 92; RESP 12; TEMP 98.1
--- NOTE | 2022-06-09 15:00 | P.PAINPG ---
PQRS Measure Charge Sheet Comment: A 51 yr old female with a history of severe and chronic LBP secondary to lumbar DDD and spondylosis with facet arthropathy without myelopathy presents today for evaluation s/p JIM L2-L3. Pt states she experienced 0% pain relief s/p procedure. Pain level is provoked at 6/10 in intensity, constant, localized in the lumbar spine, sore in character w shooting towards the BL hips, thighs. Pain is provoked by laying supine for periods of 1 hr or more. Pain is alleviated with PT x 1 session in Jul 2021 which provoked pain, chiropractic treatments x 12 wks in Jan 2022, meds (Celebrex, [place], Neurontin), lay supine, repositioning and rest. Interventional pain procedures completed include JIM L paramedian L2-L3 x1 Patient is currently on [place], Neurontin, Celebrex Patient denies any side effects of the medication(s), denies excessive drowsiness or sleepiness, denies suicidal ideation and reports that the current pain medication is helping to control the pain and improve activities of daily living. Patient denies any motor or sensory deficits. Patient denies any fever or night sweats, denies any change in the bowel movements or urination. Physical Examination: -Constitutional: Cooperative. Not in acute distress . - Neurologic: Cranial nerve II to XII intact. No focal neurological deficits. - Psychatric: Alert & oriented x 3. Matching mood & appropriate affect. Judgment and insight intact. - Musculoskeletal: Cervical spine: Muscle bulk/ tone/ strength in the bilateral upper extremities normal Vertebral body tenderness to palpation over Spurling test positive Distraction test positive Facet loading test positive Thoracic spine Muscle bulk / tone/ strength in the bilateral paraspinal muscles normal Vertebral body tender to palpation over Facet loading test positive Lumbar spine: Motor bulk/ tone/ strength lower extremities , thigh and legs : 5/5 Deep tendon reflexes : Normal Knee Jerk. Normal Ankle Jerk . Vertebral body tenderness to palpation over L2, L3, L4, L5 Lumbar Facet Loading Test positive Straight Leg Raise: positive at 30 degrees right side/ left side Gaenslen's Test positive Sacral spine : Severe tenderness over the Sacroiliac joint: right side / left side Range of motion: Flexion of the lumbar spine <60 degrees Range of motion: Extension of the lumbar spine <20 degrees Gaenslen's Test positive Nya test: positive right side / left side Thigh Thrust Test Sacral Thrust Test Assessment and plan: Chronic LBP secondary to lumbar DDD, spondylosis with facet arthropathy without myelopathy Recommendation of PT x 6 wks w a focus of traction and decompression re: M51.36 May return to our office for a re evaluation or to explore additional treatment options. Risks, benefits of procedure discussed and pt verbalized understanding. Denies anticoagulant use or medical history of diabetes. All patient questions answered I have spent less than 30 minutes on patient care today. Dr Pina was available by phone for the evaluation of this patient. The time was used to review the medical records including relevant urine studies and Prescription history (MAPs), review of the available imaging, evaluation and examination of the patient, coordination of care with the medical staff and if applicable referring physicians, as well as creation of the medical record - Pain Location Bilateral Back Non-Pharmacological Interventions: Chiropractic Treatment, Heat, Inactivity, Position/Reposition Pharmacological Interventions: Scheduled Medication PQRS Narrative: Smoking Status Current every day smoker Home Medications: Ambulatory Orders Celecoxib [CeleBREX] 200 mg PO DAILY 05/04/22 Gabapentin [Neurontin] 300 mg PO TID 05/04/22 HYDROcodone/APAP 5-325MG [[place] 5-325] 1 tab PO Q8H PRN 05/04/22 Controlled Substance Measures - Controlled Substance Measures Is patient prescribed a controlled substance at discharge?: No
== END ==
LOC: PNWHC3 13:56
PROVIDERS: ATTEND Specialist
DX: M47.816 Spondylosis without myelopathy or radiculopathy, lumbar region (principal); M51.36 Other intervertebral disc degeneration, lumbar region; G89.29 Other chronic pain; Z88.5 Allergy status to narcotic agent; F17.200 Nicotine dependence, unspecified, uncomplicated; Z88.6 Allergy status to analgesic agent
CPT/HCPCS: 99211

== ENCOUNTER 2022-11-15 19:09 | Emergency (ER) | payer BC ==
[2022-11-15] MEDS ORDERED: LIDOCAINE 2% INJ 20 MG/ML (10 ML MDV) SQ STA (19:46)
[2022-11-15] MEDS ORDERED: KETOROLAC 15 MG/ML 1 ML VIAL IVP STA (19:46)
[2022-11-15] MEDS ORDERED: KETOROLAC 15 MG/ML 1 ML VIAL IM STA (20:22)
[2022-11-15] MEDS ORDERED: BACITRACIN OINT 1 EACH PACKET TOPICAL ONE (21:22)
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
[2022-11-15 21:42] VITALS: BP 152/69; PULSE 74; RESP 16; TEMP 98.8
== END 2022-11-15 21:42 | disposition home or self-care (01) ==
LOC: EC 19:09
DX: S91.011A Laceration without foreign body, right ankle, initial encounter (principal); F41.9 Anxiety disorder, unspecified; F17.200 Nicotine dependence, unspecified, uncomplicated; F12.90 Cannabis use, unspecified, uncomplicated; Z79.1 Long term (current) use of non-steroidal anti-inflammatories (NSAID); Z88.5 Allergy status to narcotic agent; Z88.8 Allergy status to other drugs, medicaments and biological substances; W22.8XXA Striking against or struck by other objects, initial encounter; Y30.XXXA Falling, jumping or pushed from a high place, undetermined intent, initial encounter
CPT/HCPCS: 99283; 96372; 12002; J2001; J1885

== ENCOUNTER → 2023-04-12 | Outpatient (CLI) | payer BC ==
--- NOTE | 2023-04-12 13:22 | MM ---
Reason for Exam: Additional evaluation requested from prior study. Last mammogram was performed 9 year(s) and 9 month(s) ago. Patient History: Menarche at age 13. Patient has no children. Postmenopausal. Other cancer. Breast cancer, left, age 37. Hormonal Contraceptives for 7 years from age 17 until age 24. 12/2007, Lumpectomy on the Left side. 08/04/2009, Benign Core Biopsy on the left side. 01/30/2009, Benign Excisional Biopsy on the left side. 01/14/2009, Benign Core Biopsy on the left side. Chemotherapy. Radiation Therapy, left. Tissue Density: The breast tissue is heterogeneously dense. This may lower the sensitivity of mammography. Findings: Analyzed By CAD. Postprocedure changes in the left breast. No new suspicious masses, calcifications or distortions. Overall Assessment: Benign, BI-RAD 2 Management: Screening Mammogram of both breasts in 1 year. Results were given to the patient verbally at the time of exam. Patient should continue monthly self-breast exams. A clinical breast exam by your physician is recommended on an annual basis. This exam should not preclude additional follow-up of suspicious palpable abnormalities. Note on Sybil scores and lifetime risk: 1. A Sybil score greater than 3% is considered moderate risk. If this is the case, consider specialist referral to assess eligibility for a risk reducing agent. 2. If overall lifetime risk for the development of breast cancer is 20% or higher, the patient may qualify for future screening with alternating mammogram and breast MRI. Electronically signed and approved by: Juanjose Crouch DO
== END | disposition home or self-care (01) ==
LOC: RADMAMWWP 12:53
PROVIDERS: ATTEND Family Medicine
DX: R92.333 Mammographic heterogeneous density, bilateral breasts (principal); Z85.3 Personal history of malignant neoplasm of breast; Z78.0 Asymptomatic menopausal state
CPT/HCPCS: 77062; 77066

== ENCOUNTER → 2023-04-20 | Outpatient (CLI) | payer BC ==
--- NOTE | 2023-04-20 15:39 | P.PAINPG ---
PQRS Measure Charge Sheet Comment: A 52 yr old female with a history of severe and chronic LBP secondary to lumbar DDD and spondylosis with facet arthropathy without myelopathy, L Sacroiliitis presents today for evaluation. Pain level is provoked at 6/10 in intensity, constant, localized in the lumbar spine, predominantly axial, sore in character w occasional shooting towards the BL hips, thighs. Pain is provoked by laying supine for periods of 1 hr or more. Pain is alleviated with PT in 2020 which she was discharged from due to intractable pain, chiropractic treatments x 12 wks in Jan 2022, physician guided home exercises daily since Jan 2022, meds, lay supine, repositioning and rest. Oswestry axial pain score of 30. Interventional pain procedures completed include JIM L paramedian L2-L3 x1 Patient is currently on [place], Neurontin, Celebrex Patient denies any side effects of the medication(s), denies excessive drowsiness or sleepiness, denies suicidal ideation and reports that the current pain medication is helping to control the pain and improve activities of daily living. Patient denies any motor or sensory deficits. Patient denies any fever or night sweats, denies any change in the bowel movements or urination. Physical Examination: -Constitutional: Cooperative. Not in acute distress . - Neurologic: Cranial nerve II to XII intact. No focal neurological deficits. - Psychatric: Alert & oriented x 3. Matching mood & appropriate affect. Judgment and insight intact. - Musculoskeletal: Cervical spine: Muscle bulk/ tone/ strength in the bilateral upper extremities normal Vertebral body tenderness to palpation over Spurling test positive Distraction test positive Facet loading test positive Thoracic spine Muscle bulk / tone/ strength in the bilateral paraspinal muscles normal Vertebral body tender to palpation over Facet loading test positive Lumbar spine: Motor bulk/ tone/ strength lower extremities , thigh and legs : 5/5 Deep tendon reflexes : Normal Knee Jerk. Normal Ankle Jerk . Vertebral body tenderness to palpation over L2, L3, L4, L5 Lumbar Facet Loading Test positive Straight Leg Raise: positive at 30 degrees right side/ left side Gaenslen's Test positive Sacral spine : Severe tenderness over the Sacroiliac joint: right side / left side Range of motion: Flexion of the lumbar spine <60 degrees Range of motion: Extension of the lumbar spine <20 degrees Gaenslen's Test positive on L Nya test: positive right side / left side Thigh Thrust Test L positive Sacral Thrust Test Assessment and plan: Chronic LBP secondary to lumbar DDD, spondylosis with facet arthropathy without myelopathy, L Sacroiliitis Recommendation of L SI injection. May need a series of injections for optimal pain relief. Risks, benefits of procedure discussed and pt verbalized understanding. Denies anticoagulant use or medical history of diabetes. All patient questions answered I have spent less than 30 minutes on patient care today. Dr Pina was available by phone for the evaluation of this patient. The time was used to review the medical records including relevant urine studies and Prescription history (MAPs), review of the available imaging, evaluation and examination of the patient, coordination of care with the medical staff and if applicable referring physicians, as well as creation of the medical record PQRS Narrative: Smoking Status Current every day smoker Hx Alcohol Use (MH) Yes: RARE Home Medications: Ambulatory Orders Celecoxib [CeleBREX] 200 mg PO DAILY 07/13/22 Gabapentin 600 mg PO TID 07/13/22 Ondansetron Odt [Zofran Odt] 4 mg PO Q8HR PRN #10 tab 07/13/22 Vicodin 5-300 1 tab PO TID 07/13/22 Cephalexin [Keflex] 500 mg PO Q6HR 20 Days #20 cap 11/15/22 Controlled Substance Measures - Controlled Substance Measures Is patient prescribed a controlled substance at discharge?: No
[2023-04-20 15:50] VITALS: BP 127/86; PULSE 55; RESP 15; TEMP 98.6
== END ==
LOC: PNWHC3 13:54
PROVIDERS: ATTEND Specialist
DX: M54.32 Sciatica, left side (principal); M51.36 Other intervertebral disc degeneration, lumbar region; M47.816 Spondylosis without myelopathy or radiculopathy, lumbar region; M46.1 Sacroiliitis, not elsewhere classified; Z88.5 Allergy status to narcotic agent; F17.200 Nicotine dependence, unspecified, uncomplicated
CPT/HCPCS: 99211

== ENCOUNTER 2023-05-11 12:56 | Day surgery (SDC) | payer BC ==
[2023-05-11] MEDS ORDERED: LACTATED RINGERS 1,000 ML IV SCH (13:09)
[2023-05-11 13:26] VITALS: TEMP 98
[2023-05-11] MEDS ORDERED: IOPAMIDOL M200 10 ML VIAL ONE (14:17)
[2023-05-11] MEDS ORDERED: methylPREDNISolone ACETATE 80 MG/ML 1 ML VIAL ONE (14:17)
[2023-05-11] MEDS ORDERED: ROPIVACAINE 5MG/ML 20ML VIAL ONE (14:17)
--- NOTE | 2023-05-11 14:27 | P.PCN ---
Date of Procedure: 05/11/23 Procedure(s) Performed: Procedure= left sacroiliac joints steroid injection under fluoroscopy guidance (fluoroscopy image stored on file in the radiology Department ) Preoperative diagnosis= 1- left sacroiliitis 2-lumbar degenerative disc disease 3-lumbar facet arthropathy Postoperative diagnosis=Same as preop Diagnosis . Complication = none Condition= stable Anesthesia= local anesthesia with ropivacaine 0.5% 2 ml only Indication for the procedure= patient complaining of low back pain , examination was positive for severe tenderness over the left sacroiliac joints ,and patient diagnosed with sacroiliitis, for this reason , she was good candidate for sacroiliac joint steroid injection. Description of the procedure= procedure risk and benefits discussed with the patient, including but not limited, risk of infection and bleeding, and ALLERGIC reaction to the medication and not complete pain relief and patient agreed with the preceding patient taken to the operating room, placed in prone position or standard monitors applied to the patient then after induction of anesthesia back prepped with chlorhexidine 3 times , Then the left sacroiliac joint steroid injection done under strict sterile technique local infiltration of the skin and subcu interstitial at the location of the left sacroiliac joint then a 22-gauge Quincke Needle advanced slowly under fluoroscopy time placed in the left sacroiliac joint, needle placement confirmed with AP and oblique and lateral view then after appropriate needle placement confirmed, with the AP and oblique and lateral then after negative aspiration Isovue 200 1 mL injected showed arthropathy of the left sacroiliac joint, and after negative aspiration 0.5% Ropivacaine 2 mL and 60 mg of Depo- Medrol injected in the left sacroiliac joint after negative aspiration patient tolerated the procedure well that any complications and she will follow up in clinic 3 weeks
[2023-05-11 14:38] VITALS: BP 129/88; PULSE 71; RESP 16
--- NOTE | 2023-05-11 16:49 | FL ---
EXAMINATION TYPE: FL guided pain mgmt statistic Intraoperative/procedural fluoroscopic services were provided. Total fluoroscopy time is 8.8 seconds with a total of 1 submitted images to PACS. Please se e the operative/procedural note for further details. DAP: [id number] mGym2
== END 2023-05-11 14:38 | disposition home or self-care (01) ==
LOC: ORPAIN 12:56
PROVIDERS: ATTEND Specialist
DX: M46.1 Sacroiliitis, not elsewhere classified (principal); M51.36 Other intervertebral disc degeneration, lumbar region; M47.816 Spondylosis without myelopathy or radiculopathy, lumbar region; Z88.5 Allergy status to narcotic agent; Z88.9 Allergy status to unspecified drugs, medicaments and biological substances; Z95.0 Presence of cardiac pacemaker
CPT/HCPCS: 27096; J1040; Q9966; J2795

== ENCOUNTER → 2023-06-15 | Outpatient (CLI) | payer BC ==
--- NOTE | 2023-06-15 15:00 | P.PAINPG ---
PQRS Measure Charge Sheet Comment: A 52 yr old female with a history of severe and chronic LBP secondary to lumbar DDD and spondylosis with facet arthropathy without myelopathy, L Sacroiliitis presents today for evaluation s/p L SI injection #1. Pt states she experienced 0 % pain relief x 4-5 wks s/p procedure. Pain level is provoked at 10 /10 in intensity, constant, localized in the lumbar spine, predominantly axial, sore in character w occasional shooting towards the L hip, thigh, groin. Pain is provoked by laying supine for periods of 1 hr or more. Pain is alleviated with PT in 2020 which she was discharged from due to intractable pain, chiropractic treatments x 12 wks in Jan 2022, physician guided home exercises daily since Jan 2022, meds, lay supine, repositioning and rest. Pt is unhappy with her previous orthopedic surgeon because she did not get answers to fatty white matter on a prior MRI lumbar spine. Oswestry axial pain score of 30. Interventional pain procedures completed include JMI L paramedian L2-L3 x1, L SI x1 Patient is currently on [place], Neurontin, Celebrex Patient denies any side effects of the medication(s), denies excessive drowsiness or sleepiness, denies suicidal ideation and reports that the current pain medication is helping to control the pain and improve activities of daily living. Patient denies any motor or sensory deficits. Patient denies any fever or night sweats, denies any change in the bowel movements or urination. Physical Examination: -Constitutional: Cooperative. Not in acute distress . - Neurologic: Cranial nerve II to XII intact. No focal neurological deficits. - Psychatric: Alert & oriented x 3. Matching mood & appropriate affect. Judgment and insight intact. - Musculoskeletal: Cervical spine: Muscle bulk/ tone/ strength in the bilateral upper extremities normal Vertebral body tenderness to palpation over Spurling test positive Distraction test positive Facet loading test positive Thoracic spine Muscle bulk / tone/ strength in the bilateral paraspinal muscles normal Vertebral body tender to palpation over Facet loading test positive Lumbar spine: Motor bulk/ tone/ strength lower extremities , thigh and legs : 5/5 Deep tendon reflexes : Normal Knee Jerk. Normal Ankle Jerk . Vertebral body tenderness to palpation over L2, L3, L4, L5 Lumbar Facet Loading Test positive Straight Leg Raise: positive at 30 degrees right side/ left side Gaenslen's Test positive Sacral spine : Severe tenderness over the Sacroiliac joint: right side / left side Range of motion: Flexion of the lumbar spine <60 degrees Range of motion: Extension of the lumbar spine <20 degrees Gaenslen's Test positive on L Nya test: positive right side / left side Thigh Thrust Test L positive Sacral Thrust Test Assessment and plan: Chronic LBP secondary to lumbar DDD, spondylosis with facet arthropathy without myelopathy, L Sacroiliitis Will follow up w orthopedic surgery for additional treatment options. All patient questions answered I have spent less than 30 minutes on patient care today. Dr Pina was available by phone for the evaluation of this patient. The time was used to review the medical records including relevant urine studies and Prescription history (MAPs), review of the available imaging, evaluation and examination of the patient, coordination of care with the medical staff and if applicable referring physicians, as well as creation of the medical record PQRS Narrative: Smoking Status Current every day smoker Hx Alcohol Use (MH) Yes: RARE Home Medications: Ambulatory Orders Acetaminophen Tab [Tylenol Tab] 1,000 mg PO Q6HR 05/09/23 Naproxen Sodium [Aleve] 220 mg PO BID 05/09/23 Controlled Substance Measures - Controlled Substance Measures Is patient prescribed a controlled substance at discharge?: No
[2023-06-15 15:16] VITALS: BP 123/82; PULSE 79; RESP 14
== END ==
LOC: PNWHC3 14:22
PROVIDERS: ATTEND Specialist
DX: M51.36 Other intervertebral disc degeneration, lumbar region (principal); M47.816 Spondylosis without myelopathy or radiculopathy, lumbar region; G89.29 Other chronic pain; M46.1 Sacroiliitis, not elsewhere classified; F17.200 Nicotine dependence, unspecified, uncomplicated; Z88.5 Allergy status to narcotic agent; Z88.8 Allergy status to other drugs, medicaments and biological substances
CPT/HCPCS: 99211

== ENCOUNTER → 2023-08-09 | Outpatient (CLI) | payer BC ==
--- NOTE | 2023-08-09 21:49 | MR ---
EXAMINATION TYPE: MR lumbar spine wo con DATE OF EXAM: 08/09/2023 COMPARISON: None HISTORY: Low back and left pain into left leg CONTRAST: 0 mL intravenous Gadobutrol. TECHNIQUE: Multiplanar, multisequence images of the lumbar spine were acquired. FINDINGS: L5-S1: There is loss of disc height at this level. Disc bulging is present with moderate anterior the lou sac compression. Moderately sized right disc herniation or bulge is present with mild anterior th ecal sac compression. This may have some contact with the right exiting S1 nerve root. Correlate with right S1 radicular symptoms. Mild bilateral foraminal narrowing is present. Modic type II degenerati ve endplate changes are present. L4-L5: Mild disc bulge is present with anterior thecal sac contact. Facet hypertrophy with ligamentum flavum laxity has posterior lateral thecal sac compression. No spinal canal stenosis is present. Olivia ral foramen are patent. L3-L4: No significant disc bulge or disc herniation. No spinal canal stenosis. No foraminal stenosi s. L2-L3: No significant disc bulge or disc herniation. No spinal canal stenosis. No foraminal stenosi s. L1-L2: No significant disc bulge or disc herniation. No spinal canal stenosis. No foraminal stenosi s. T12-L1: No significant disc bulge or disc herniation. No spinal canal stenosis. No foraminal stenos is. IMPRESSION: 1. Degenerative disc changes loss of disc height L5-S1. A right paracentral disc bulge has contact wi th the right exiting S1 nerve root. Correlate right S1 radicular symptoms.
== END | disposition home or self-care (01) ==
LOC: RADMRIMAIN 11:03
PROVIDERS: ATTEND Orthopaedic Surgery
DX: M51.17 Intervertebral disc disorders with radiculopathy, lumbosacral region (principal)
CPT/HCPCS: 72148

== ENCOUNTER → 2023-09-28 | Outpatient (CLI) | payer BC ==
--- NOTE | 2023-09-28 12:33 | CT ---
EXAMINATION TYPE: CT lumbar spine wo con DATE OF EXAM: 09/28/2023 COMPARISON: None HISTORY: back pain CT DLP: 327.[address] of the lumbar spine was performed. Bone and soft tissue window settings are submitted as well as coronal and sagittal reconstructions. L1-L2: Normal disc space height. No disc herniation protrusion or central stenosis. No facet joint arthropathy. No evidence for foraminal encroachment. L2-L3: Normal disc space height. No disc herniation protrusion or central stenosis. No facet joint arthropathy. No evidence for foraminal encroachment. L3-L4: Normal disc space height. No disc herniation protrusion or central stenosis. No facet joint arthropathy. No evidence for foraminal encroachment. L4-L5: Mild degenerative disc space narrowing with posterior disc bulge. Bilateral lateral recess maile nosis. No evidence of central stenosis. Mild bilateral neural foraminal encroachment. No herniation. L5-S1: Severe disc desiccation posterior disc bulge and partially encapsulating spur resulting in dis c endplate complex. There is resultant central stenosis. Bilateral lateral recess stenosis and bilate ral foraminal encroachment. No paraspinal masses are identified. Lumbar segments are free if fracture. IMPRESSION: 1. Degenerative disc disease at L4-5 and L5-S1. Bilateral lateral recess stenosis at each level as we ll as central stenosis at L5-S1. See above.
== END | disposition home or self-care (01) ==
LOC: RADCTMAIN 11:19
PROVIDERS: ATTEND Orthopaedic Surgery
DX: M51.37 Other intervertebral disc degeneration, lumbosacral region (principal); M48.07 Spinal stenosis, lumbosacral region
CPT/HCPCS: 72131

== ENCOUNTER → 2023-10-20 | Outpatient (CLI) | payer BC ==
--- NOTE | 2023-10-21 13:11 | CA ---
Transthoracic Echo Report Name: Hany Aguilar Age: 53 Gender: F : 1970 Exam Date: 10/20/2023 13:27 Exam Location: [facility] Ht (in): 62 Wt (lb): 102 Ordering Physician: Kory Oliveira DO Attending/Referring Phys: Guardian Family Member Ainsley Barron RDCS Procedure CPT: Indications: R94.31 ABNORMAL ELECTROCARDIOGRAM Cardiac Hx: Technical Quality: Fair Contrast 1: Total Dose (mL): Contrast 2: Total Dose (mL): MEASUREMENTS (Male / Female) Normal Values 2D ECHO LV Diastolic Diameter PLAX 3.4 cm 4.2 - 5.9 / 3.9 - 5.3 cm LV Systolic Diameter PLAX 2.7 cm IVS Diastolic Thickness 0.9 cm 0.6 - 1.0 / 0.6 - 0.9 cm LVPW Diastolic Thickness 1.0 cm 0.6 - 1.0 / 0.6 - 0.9 cm LV Relative Wall Thickness 0.5 RV Internal Dim ED PLAX 3.9 cm LV Diastolic Volume MOD BP 63.3 cm??? 67 - 155 / 56 - 104 cm??? LV Systolic Volume MOD BP 30.4 cm??? 22 - 58 / 19 - 49 cm??? LV Ejection Fraction MOD BP 52.0 % >= 55 % LV Cardiac Index MOD BP 1649.1 cm???/min???m??? LV Diastolic Volume MOD 4C 40.3 cm??? LV Systolic Volume MOD 4C 17.5 cm??? LV Ejection Fraction MOD 4C 56.6 % LV Cardiac Index MOD 4C 1141.2 cm???/min???m??? LV Diastolic Length 4C 7.4 cm LV Systolic Length 4C 5.3 cm LV Diastolic Volume MOD 2C 90.5 cm??? LV Systolic Volume MOD 2C 46.8 cm??? LV Ejection Fraction MOD 2C 48.3 % LV Cardiac Index MOD 2C 2187.8 cm???/min???m??? LV Diastolic Length 2C 6.6 cm LV Systolic Length 2C 6.0 cm LA Volume 42.3 cm??? 18 - 58 / 22 - 52 cm??? LA Volume Index 29.8 cm???/m??? 16 - 28 cm???/m??? M-MODE Aortic Root Diameter MM 2.6 cm LA Systolic Diameter MM 3.1 cm LA Ao Ratio MM 1.2 AV Cusp Separation MM 2.1 cm DOPPLER LVOT Peak Velocity 108.3 cm/s LVOT Peak Gradient 4.7 mmHg LVOT Velocity Time Integral 22.1 cm MV Area PHT 3.5 cm??? Mitral E Point Velocity 89.8 cm/s Mitral A Point Velocity 56.7 cm/s Mitral E to A Ratio 1.6 MV Deceleration Time 214.8 ms MV E' Velocity 13.6 cm/s Mitral E to MV E' Ratio 6.6 TR Peak Velocity 166.9 cm/s TR Peak Gradient 11.1 mmHg Right Ventricular Systolic Press 16.1 mmHg FINDINGS Left Ventricle Left ventricular cavity size normal. Left ventricular wall thickness normal. Normal left ventricular systolic function with no obvious regional wall motion abnormalities. Left ventricular ejection fraction is estimated at 50-55 %. Grade 1 diastolic dysfunction. Right Ventricle Mild right ventricular dilatation. Right ventricular systolic pressure within normal limits. Right Atrium Normal right atrial size. Left Atrium Mildly increased left atrial volume. Mitral Valve Structurally normal mitral valve. Mild mitral annular calcification. Mild mitral regurgitation. Aortic Valve Trileaflet aortic valve. No aortic valve stenosis or regurgitation. Tricuspid Valve Structurally normal tricuspid valve. Mild tricuspid regurgitation. Pulmonic Valve Structurally normal pulmonic valve. Pericardium No pericardial effusion. Aorta Normal size aortic root and proximal ascending aorta. CONCLUSIONS Normal LV systolic function Impaired relaxation of the LV or stage I diastolic dysfunction Previewed by: Dr. Fab Vazquez MD (Electronically Signed) Final Date: 21 October 2023 13:10
== END | disposition home or self-care (01) ==
LOC: RADECHMAIN 13:26
PROVIDERS: ATTEND Family Medicine
DX: R94.31 Abnormal electrocardiogram [ECG] [EKG] (principal)
CPT/HCPCS: 93306

== ENCOUNTER 2024-09-01 15:11 | Emergency (ER) | payer BC ==
[2024-09-01 15:27] VITALS: BP 180/92; PULSE 97; RESP 18; TEMP 97.9
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
== END 2024-09-01 16:23 | disposition home or self-care (01) ==
LOC: EC 15:11
DX: T23.272A Burn of second degree of left wrist, initial encounter (principal); T31.0 Burns involving less than 10% of body surface; F17.290 Nicotine dependence, other tobacco product, uncomplicated; Z88.6 Allergy status to analgesic agent; Z88.5 Allergy status to narcotic agent; X12.XXXA Contact with other hot fluids, initial encounter
CPT/HCPCS: 16020; 99283

== ENCOUNTER → 2024-11-22 | Outpatient (CLI) | payer MEDICARE ==
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
== END | disposition home or self-care (01) ==
LOC: LABPAT 12:34
PROVIDERS: ATTEND Orthopaedic Surgery
DX: Z01.812 Encounter for preprocedural laboratory examination (principal); Z22.322 Carrier or suspected carrier of Methicillin resistant Staphylococcus aureus; M47.26 Other spondylosis with radiculopathy, lumbar region; M48.061 Spinal stenosis, lumbar region without neurogenic claudication
CPT/HCPCS: 71046; 86850; 86900; 86901; 87070

== ENCOUNTER 2024-11-25 05:39 | Day surgery (SDC) | payer MEDICARE ==
[2024-11-22 09:04] VITALS: BMI 19.7
[~2024-11-25 05:39] MED LIST: TRANEXAMIC 1,000 MG/100ML-NACL 1,000 MG in SALINE 1 100ML.BAG IVPB PRN
[2024-11-25] MEDS ORDERED: LIDOCAINE 1% (10MG/ML) FOR IV START INTRADERMA PRN (06:07)
--- NOTE | 2024-11-25 06:31 | P.HPOR ---
History of Present Illness .D:Date: 10/02/24 : 08:49am .T:Title: FOLLOW UP LUMBAR Patient Name Carlo Aguilar CLINICAL SUMMARY: Carlo Aguilar continues to experience significant low back pain, primarily radiating to the left side, affecting areas including the tailbone, left buttock, groin, knee, and calf. The sensations described include severe discomfort, such as the feeling of tendons being ripped and a burning sensation. Previous conservative treatments have been unsuccessful in managing symptoms. Neurological examination reveals notable weakness in the left lower extremity, with plantar flexion strength rated at 2/5 compared to 5/5 on the right side, and dorsiflexion at 4/5. Imaging studies indicate L5-S1 spondylosis, degenerative disc disease, spinal stenosis, and advanced arthritic changes. Despite previous barriers and delays caused by smoking cessation requirements and insurance issues, the patient is prepared to proceed with a planned minimally invasive lumbar fusion surgery aimed at nerve decompression and stabilization. Surgical Plan: L5-S1 MINIMALLY INVASIVE POSTEROLATERAL AND INTERBODY FUSION History/Background Carlo Aguilar presents with ongoing low back pain that has been present for at least four years. The patient reports quitting smoking recently, which was previously a barrier to surgery. There is a history of cancelled or delayed surgeries due to insurance coding issues and the requirement to quit smoking. The patient expresses frustration with the prolonged process and multiple delays in receiving treatment. Clinical Observations 1. Pain assessment: - VAS score: 6 (high pain level) - Pain characteristics: constant, sharp, shooting, burning - Pain locations: low back, left lower leg, tailbone, left buttock, left groin, left knee, left calf - Patient describes feeling like "muscles and tendons are being ripped off the bones" and "on fire" 2. Neurological assessment: - Left plantar flexion: 2/5 strength - Right plantar flexion: 5/5 strength - Left dorsiflexion: 4/5 strength - Left lower extremity: 4/5 strength throughout - Unable to go up on tiptoes on the left foot without support 3. Imaging findings: - L5-S1 spondylosis with degenerative disc disease and collapse - Spinal stenosis - MRI shows Modic endplate changes type 2 - Arthritic facet joints with overgrowth 4. Functional limitations: - Difficulty climbing stairs - Left leg feels extremely fatigued after climbing stairs - Increasing weakness in the left leg 5. 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 Vital signs: - Blood pressure: 158/82 - Heart rate: 86 - Temperature: 97.8F - O2 saturation: 91% on room air 7. Physical characteristics: - Height: 5'2" - Weight: 110 lbs - Status: Disabled The patient expresses significant frustration with the healthcare process and the impact of their condition on daily life. They have quit smoking and stopped taking other medications due to concerns about addiction. The patient is eager to proceed with surgery despite previous setbacks and delays. Plan/Recommendations I recommend a minimally invasive fusion surgery for Carlo Aguilar. The procedure will involve two small incisions on either side of the lower back, specifically targeting the L5-S1 region. The surgery will include: 1. Decompression of nerves on the left side of the spine 2. Removal of a bone spur on the posterior aspect of the lumbar spine 3. Addressing the L5-S1 spondylosis, degenerative disc disease, and collapse 4. Treatment of spinal stenosis 5. Placement of a metal cage for fusion Pre-operative steps: 1. Update lumbar spine x-rays today in the office 2. Schedule surgery within the next month 3. Follow-up appointment one week before surgery Post-operative care and follow-up will be discussed in detail during the pre- surgical appointment. Medical Necessity: The patient, Carlo Aguilar, has been experiencing severe and chronic low back pain radiating to the left lower extremity, significantly affecting daily functioning and quality of life. Clinical evaluations reveal L5-S1 spondylosis with degenerative disc disease, nerve stenosis, and Modic endplate changes type 2, which contribute to persistent pain and neurological deficits. Conservative treatments, including physical therapy and medication, have not provided adequate relief. Surgical intervention is medically necessary to address these underlying structural abnormalities, alleviate pain, and improve functional capacity. Surgical Rationale: A minimally invasive lumbar fusion is proposed to effectively address Carlo Aguilar's lumbar spine condition. The procedure involves decompression of nerve roots on the left side, removal of a bone spur causing nerve impingement, and stabilization of the L5-S1 segment with a metal cage. This intervention aims to relieve nerve compression, correct spinal instability, and halt further degenerative changes, thereby reducing pain and restoring neurological function in the affected lower extremity. #Orders: Pelvis xray #Orders: Spine, Lumbar, MV # SIGNED BY Jonathan Soria (GOO)10/02/2024 08:53A Past Medical History Past Medical History: Cancer, Musculoskeletal Disorder, Osteoarthritis (OA) Additional Past Medical History / Comment(s): Hx stage 4 left breast cancer stage 4 with lumpectomy radiation and chemo [id number]. Bone spurs, spondylosis, degenerative disc disease. History of Any Multi-Drug Resistant Organisms: MRSA Date of last positivie culture/infection: 2007 MDRO Source:: left breast Past Surgical History: Breast Surgery Additional Past Surgical History / Comment(s): Left breast lumpectomy. Past Anesthesia/Blood Transfusion Reactions: No Reported Reaction Smoking Status: Former smoker - Past Family History Father Family Medical History: Cancer Additional Family Medical History / Comment(s): Father at age 70 due to kidney cancer. Parkinsons. Mother Additional Family Medical History / Comment(s): No major medical problems. Brother(s) Family Medical History: Asthma Additional Family Medical History / Comment(s): Patient does not have any sisters. Patient doesn't have any children. Medications and Allergies Home Medications Medication Instructions Recorded Confirmed Type HYDROcodone/APAP 5-325MG [Sunset 1 tab PO Q8H PRN 11/22/24 11/22/24 History 5-325] Allergies Allergy/AdvReac Type Severity Reaction Status Date / Time aspirin AdvReac Vomiting Verified 11/25/24 06:13 codeine AdvReac Nausea & Verified 11/25/24 06:13 Vomiting & Diarrhea fentanyl AdvReac Nausea & Verified 11/25/24 06:13 Vomiting Physical Examination Osteopathic Statement: *. No significant issues noted on an osteopathic structural exam other than those noted in the History and Physical/Consult.
[2024-11-25] MEDS: ACETAMINOPHEN TAB 500 MG TAB PO PRN (06:51)
[2024-11-25] MEDS: GABAPENTIN 300 MG CAP PO PRN (06:51)
[2024-11-25] MEDS: LACTATED RINGERS 1,000 ML IV SCH (06:51)
[2024-11-25] MEDS: ONDANSETRON 4 MG/2 ML VIAL IVP PRN ×2 (06:52→14:02)
[2024-11-25] MEDS: IV FLUID CONTINUATION 1,000 ML IV ONE ×2 (06:54)
[2024-11-25] MEDS ORDERED: fentaNYL (PF) 50 MCG/ML 2 ML AMP ONE (07:30)
[2024-11-25] MEDS ORDERED: MIDAZOLAM 2 MG/2 ML VIAL ONE (07:30)
[2024-11-25] MEDS ORDERED: ePHEDrine 50 MG/ML 1 ML VIAL ONE (07:30)
[2024-11-25] MEDS ORDERED: TRANEXAMIC 1,000 MG/100ML-NACL PREMIX BAG ONE (07:30)
[2024-11-25] MEDS ORDERED: PROPOFOL 10 MG/ML 20 ML VIAL IV ONE (07:30)
[2024-11-25] MEDS ORDERED: PHENYLEPHRINE 10 MG/ML VIAL ONE (07:30)
[2024-11-25] MEDS ORDERED: SUCCINYLCHOLINE CHLORIDE 200 MG/10 ML VIAL IV ONE (07:30)
[2024-11-25] MEDS ORDERED: LIDOCAINE 1% INJ 10MG/ML (20 ML MDV) ONE (07:30)
[2024-11-25] MEDS: BUPIVACAINE (PF) 0.5% 30 ML VIAL SQ ONE (08:01)
[2024-11-25] MEDS: LIDOCAINE 2%-EPI 1:100,000 20 ML VIAL SQ ONE (08:01)
[2024-11-25] MEDS: THROMBIN (BOVINE) 5,000 UNIT VIAL TOPICAL ONE (08:37)
--- NOTE | 2024-11-25 09:22 | P.OP ---
Date of Procedure: 11/25/24 Preoperative Diagnosis: 1. L5-S1 SPONDYLOSIS WITH STENOSIS AND RADICULOPATHY 2. L5-S1 DDD 3. BLE RADICULOPATHY 4. BLE WEAKNESS 5. LOW BACK PAIN Postoperative Diagnosis: 1. L5-S1 SPONDYLOSIS WITH STENOSIS AND RADICULOPATHY 2. L5-S1 DDD 3. BLE RADICULOPATHY 4. BLE WEAKNESS 5. LOW BACK PAIN Procedure(s) Performed: 1. L5-S1 VERTEBRAL BODY OSTEOTOMY FOR DEFORMITY CORRECTION 2. L5-S1 POSTEROLATERAL AND INTERBODY FUSION 3. L5-S1 SEGMENTAL INSTRUMENTATION 4. L5-S1 LAMINECTOMY, FACETECTOMY AND FORAMINOTOMY FOR COMPLETE NEURAL DECOMPRESSION, DEFORMITY CORRECTION AND CAGE PLACEMENT 5. INSERTION OF BIOMECHANICAL DEVICE, CAGE, x1 6. USE OF [employer] NAVIGATION FOR SCREW PLACEMENT USE OF IONM ALL SCREWS TESTING > 20 mA USE OF IO MICROSCOPE Implants: -DHRUV EVEREST RODS AND SCREWS -GLOBUS SABLE CAGE x1, 10 MM, 6-12 8 DEG -CONTOUR, ARTHROCELL, ALLOCELL AF, DBM Anesthesia: GETA Surgeon: Jonathan Soria Operating System Programmer #1: Oni Godfrey (WAS PRESENT AND ASSISTED WITH ALL ASPECTS OF THE CASE FROM POSITION TO DRESSING PLACEMENT) Estimated Blood Loss (ml): 75 IV fluids (ml): 1,100 Urine output (ml): 0 Pathology: none sent Condition: stable Disposition: PACU Indications for Procedure: Carlo Aguilar continues to experience significant low back pain, primarily radiating to the left side, affecting areas including the tailbone, left buttock, groin, knee, and calf. The sensations described include severe discomfort, such as the feeling of tendons being ripped and a burning sensation. Previous conservative treatments have been unsuccessful in managing symptoms. Neurological examination reveals notable weakness in the left lower extremity, with plantar flexion strength rated at 2/5 compared to 5/5 on the right side, and dorsiflexion at 4/5. Imaging studies indicate L5-S1 spondylosis, degenerative disc disease, spinal stenosis, and advanced arthritic changes. Despite previous barriers and delays caused by smoking cessation requirements and insurance issues, the patient is prepared to proceed with a planned minimally invasive lumbar fusion surgery aimed at nerve decompression and stabilization. Surgical Plan: L5-S1 MINIMALLY INVASIVE POSTEROLATERAL AND INTERBODY FUSION Description of Procedure: L5-S1 MIS PLIBF LUIS E (L) The patient was seen and examined in the preoperative area. All preoperative protocols were followed. Informed consent was obtained, risks and benefits of the procedure were discussed at length. Risks including bleeding infection damage to the surrounding tissue and risk of reoperation were discussed with the patient. Risk of anesthesia up to and including was discussed with the patient. These are outlined in the risk review. They were willing to accept these risks and all the risks of surgery. The patient was given a weight-based dose of antibiotics in the form of 2 g Ancef. The patient was seen and evaluated by the anesthesia team who deemed them fit for surgery. The site was marked, the patient was willing to proceed with the procedure. The patient was transferred to the operative suite by the Department of anesthesia. They were then drifted off to sleep by the department anesthesia and GETA was performed. The patient tolerated this well. Steve catheter was placed by nursing staff, a-traumatically. Once confirmation of lines and ventilation the patient was transferred to a prone Daniel table very carefully. All bony prominences including wrists, elbows, axilla, chest, hips, and thighs, and feet were padded very well. Special attention was paid to the genitalia, and these were padded accordingly. SCDs were placed on bilateral lower extremities and were connected. Arms were well padded and placed on arm boards up and out in the 90/90 position. Once in position, again we confirmed good ventilation capabilities and that lines were running appropriately. The patients Lumbar spine was then exposed. 1010s were placed outlining the in cision site. Standard alcohol was used to clean the incision site and allowed to dry. C-arm was used to needle localize the pedicles at L5-S1 and bio-rani the patient and confirm level for incision which was marked with a skin marker. Operative briefing was performed with all teams and everyone in agreement to proceed. The patient was then prepped and draped in a normal sterile fashion. Timeout was then performed, and all parties agreed with the procedure to be performed. Skin nicks were made over the PSIS on the right side and pins placed for the [employer] Navigation tracker. This was secured and then a 3D Zhiem spin was registered. Once registered it was tested and confirmed to be accurate. We then targeted pedicles b/l at L5 and S1 using navigated Jamshidi and drill guide. Wires were then placed in their void and confirmed to be in good position on AP and Lateral. Contralateral right side screws were then placed over wires and tested and they all tested above 20 mA. Attention then drawn to L5-S1 interbody fusion. Sequential dilation was done with bilplanar fluro for placement of tubular retractor system over the L5-S1 region. Once in position it was secured to the table with an arm. Limited myomectomy was done exposing the lamina and facet joints at L5-S1. Laminectomy, complete facetectomy and foraminotomies were performed using high speed bur, Kerrison rongeur. There was exuberant bone formation throughout the entire lumbar spine, making the case very meticulous and difficult. Severe stenosis with dural scarring was noted along with a large disc osteophyte. There was significant scar tissue surrounding these joints as well as the dura. Once exposed the neural elements were protected and an intradiscal osteotomy, 3 column, was performed for deformity correction at L5-S1. Osteotome was used to make osteotomy in L5 and S1 and for complete disc removal. A box osteotome was then used to widen this bilaterally. This was passed into the anterior 1/3 of L 5. This allowed for loosening of this level and correction. A cage was then selected based on shaving and trials. Bleeding endplates were encountered and cartilage removed. Autograft, allograft were then placed anterior to the cage. The cage was then impacted into place under lateral imaging while protecting neural elements. The cage was then expanded into position and showed good lift and correction. Mandaeism of lordosis and height achieved. Meticulous hemostasis then performed. Cage was backfilled with DBM and the area irrigated. Screws were then selected and placed over the previously placed wires on the ipsilateral side. This was done in the fashion described above. Screws were then tested, and all tested above 20 mA. Shells were then placed on the tabs. Alfredito length was then measured, and rods selected. They were then placed through the MIS tabs, subfascial. These were then locked into place with set screws and final tightened. Alfredito holders removed and images taken showing good placement of rods, good lordosis and islam of height. Tabs were broken off. Wounds were then copiously irrigated with NSS. Randy used for TP decortication and mixture of MagnatOs, allograft and autograft packed posterolateral. Facia was then closed with 0 Vircyl. Deep subq closed with 0 Vicryl. Superficial subq closed with 2-0 Vicryl and skin with polly. Wound edges approximated very well. The wound was then cleaned with alcohol and dried. Wounds dressed in Optifoam dressings. The patient was then transferred off the table back to their hospital bed a- traumatically. They were extubated by the department of anesthesia. They were then transferred to PACU in stable condition having tolerated the procedure with no complications.
--- NOTE | 2024-11-25 09:33 | FL ---
EXAMINATION TYPE: FL guidance operating room, XR lumbar spine 2 or 3V DATE OF EXAM: 11/25/2024 9:26 AM COMPARISON: Pre Operative Images if available both CT/MRI or plain film CLINICAL INDICATION: Female, 54 years old with history of M48.061 LUMBAR STENOSIS; TECHNIQUE: FL guidance operating room, XR lumbar spine 2 or 3V, multiple fluoroscopic images provided for procedure. DAP: 0.86110 mGym2 Gycm2 uGym2 cGycm2 or equivalent. FINDINGS: Fluoroscopic images during internal fixation/arthroplasty demonstrate hardware in appropriate positio n. Hardware appears intact. No immediate complication identified. IMPRESSION: 1. No evidence for intraoperative complication. 2. Please see the operative/procedural note for further details. [facility], , 11/25/2024 9:31 AM
[2024-11-25] MEDS: HYDROmorphone 0.5 MG/0.5 ML SYRINGE IVP PRN (10:05)
[2024-11-25] MEDS ORDERED: MAGNESIUM HYDROXIDE 2,400 MG/30 ML CUP PO PRN (10:53)
[2024-11-25] MEDS ORDERED: HYDROcodone/APAP 10-325MG 1 EACH TAB PO PRN (10:53)
[2024-11-25] MEDS ORDERED: SENNOSIDES-DOCUSATE SODIUM 1 EACH TAB PO PRN (10:53)
[2024-11-25] MEDS: ACETAMINOPHEN TAB 325 MG TAB PO SCH (13:43)
[2024-11-25] MEDS: HYDROmorphone 1 MG/ML 1 ML SYRINGE IVP PRN (16:35)
--- NOTE | 2024-11-25 17:59 | CT ---
EXAMINATION TYPE: CT lumbar spine wo con DATE OF EXAM: 11/25/2024 5:27 PM COMPARISON: 09/27/2024.. CLINICAL INDICATION: Female, 54 years old with history of s/p L5-S1 MIS PLIF; PHH, post op lumbar fus ion TECHNIQUE: Multiple axial images were obtained from the midportion of T11 through the sacroiliac rukhsana nts. Soft tissue and bone windows in coronal and sagittal planes were obtained and reviewed. 3-D ref ormats of the bones were created on a separate workstation and submitted for review. Contrast used: mL of , (None, if empty). Oral contrast used: (None, if empty). CT DLP: 416.3 mGycm, Automated exposure control for dose reduction was used. FINDINGS: Postsurgical changes to the lumbar spine with fixation hardware at L5 and S1. Discectomy at L5-S1. Jones rdware limits evaluation at these levels. Hardware appears intact. No evidence of fracture. Postsurgical changes in the soft tissues with foci of gas present. Posterior back skin polly are p resent. Subcutaneous gas throughout the surgical bed noted posteriorly. Pneumorachis also present. IMPRESSION: Postsurgical changes without evidence of immediate post operative complication. [facility], , 11/25/2024 5:57 PM
[2024-11-25] MEDS: HYDROcodone/APAP 5-325MG 1 EACH TAB PO PRN (18:00)
[2024-11-25] MEDS: CYCLOBENZAPRINE 5 MG TAB PO PRN (20:13)
[2024-11-25 20:39] VITALS: RESP 18
[2024-11-26 08:22] LABS: Basophils # (A) 0.05 X 10*3/uL (0.00-0.10); Basophils % (A) 0.6 %; Eosinophils # (A) 0.09 X 10*3/uL (0.04-0.35); Eosinophils % (A) 1.0 %; HCT 35.1 % (37.2-46.3); HGB 11.4 g/dL (12.0-15.0); Immature Grans, Automated 0.30 %; Lymphocytes # (A) 1.50 X 10*3/uL (0.90-5.00); Lymphocytes % (A) 17.1 %; MCH 32.6 pg (27.0-32.0); MCHC 32.5 g/dL (32.0-37.0); MCV 100.3 FL (80.0-97.0); Monocytes # (A) 0.74 X 10*3/uL (0.20-1.00); Monocytes % (A) 8.5 %; NRBC Per 100 WBC 0 X 10*3/uL (0.00-0.01); Neutrophils # (A) 6.34 X 10*3/uL (1.80-7.70); Neutrophils % (A) 72.5 %; Platelet Count 236 X 10*3/uL (140-440); RBC 3.50 X 10*6/uL (4.10-5.20); RDW 12.8 % (11.5-14.5); WBC 8.75 X 10*3/uL (4.50-10.00)
[2024-11-26 08:36] LABS: Anion Gap 8.90 mmol/L (4.00-12.00); BUN/Creat Ratio 10.50 Ratio (12.00-20.00); Blood Urea Nitrogen 6.3 mg/dL (9.0-27.0); Calcium 8.9 mg/dL (8.7-10.3); Carbon Dioxide 25.1 mmol/L (21.6-31.8); Chloride 105 mmol/L (96-109); Glucose 116 mg/dL (70-110); Potassium 4.2 mmol/L (3.5-5.5); Sodium 139 mmol/L (135-145)
[2024-11-26] MEDS: KETOROLAC 15 MG/ML 1 ML VIAL IVP STA (09:48)
[2024-11-26] MEDS: CYCLOBENZAPRINE 5 MG TAB PO SCH (09:48)
--- NOTE | 2024-11-26 10:12 | P.PN ---
Subjective Progress Note Date: 11/26/24 Principal diagnosis: 1. L5-S1 SPONDYLOSIS WITH STENOSIS AND RADICULOPATHY 2. L5-S1 DDD 3. BLE RADICULOPATHY 4. BLE WEAKNESS 5. LOW BACK PAIN Patient seen and examined this morning. Patient is sitting at the edge of bed. She states that she had just ambulated to the restroom. Patient reports that she is having increased pain of the lumbar spine with activity. Medications have been adjusted. Continue to encourage patient to increase her activity and to participate with physical therapy today. Patient does state that she has an LSO brace at home, encourage patient to have family bring in for the car ride home. Patient does not need the brace to participate with physical therapy or occupational therapy. Surgical dressing to the lumbar spine is clean dry and in tact. Dressing may be changed to a Optifoam dressing. No acute concerns. Objective - Vital Signs Vital signs: Vital Signs Temp 99.1 F 11/26/24 08:00 Pulse 83 11/26/24 08:00 Resp 18 11/26/24 08:00 BP 109/67 11/26/24 08:00 Pulse Ox 95 11/26/24 08:00 FiO2 Intake & Output 11/25/24 11/26/24 11/26/24 18:59 06:59 18:59 Intake Total 1350 Output Total 75 Balance 1275 Weight 49 kg Intake: IV 1350 Output: Estimated Blood Loss 75 Other: Voiding Method Toilet # Voids 1 1 - Exam Physical Examination General: The patient is awake and alert, in no acute distress. Skin: Skin is warm and dry with no obvious rashes or lesions. Surgical incision to the lumbar spine, dressing is clean dry and intact. Eye: Pupils are equal, round and reactive to light, extra-ocular movements are intact; there is normal conjunctiva bilaterally. Neck: The neck is supple, there is no tenderness and ROM intact. Respiratory: Respirations are non-labored. Gastrointestinal: Soft, non-distended, non-tender abdomen. Back: There is no tenderness to palpation in the midline, paralumbar, paratho racic or buttocks region. There is no obvious deformity. Musculoskeletal: ROM limited secondary to pain and stiffness from surgical procedure. Right: Shoulder abduction 5/5, elbow flexors 5/5, wrist dorsiflexors 5/5. finger abductor 5/5, fuel cell technician 5/5, hip flexor 5/5, knee flexor 5/5, ankle dorsiflexor 5/5, ankle plantarflexion 5/5 and extensor hallucis 5/5 Left: Shoulder abduction 5/5, elbow flexors 5/5, wrist dorsiflexors 5/5. finger abductor 5/5, fuel cell technician 5/5, hip flexor 5/5, knee flexor 5/5, ankle dorsiflexor 5/5, ankle plantarflexion 5/5 and extensor halluci s 5/5. Neurological: CN 2-12 intact. There are no obvious motor or sensory deficits. Movement and coordination equal and intact. Sensory exam to light touch intact C5-T1 and intact from L2-S1. Reflexes 2/4 in bilateral upper and lower extremities. Negative Hoffmans, babinski, and clonus signs. Psychiatric: Cooperative, appropriate mood & affect, normal judgment. - Labs CBC & Chem 7: 11/26/24 03:51 11/26/24 03:51 Labs: Abnormal Lab Results - Last 24 Hours (Table) 11/26/24 11/26/24 Range/Units 03:51 03:51 RBC 3.50 L (4.10-5.20) X 10*6/uL Hgb 11.4 L (12.0-15.0) g/dL Hct 35.1 L (37.2-46.3) % MCV 100.3 H (80.0-97.0) FL MCH 32.6 H (27.0-32.0) pg BUN 6.3 L (9.0-27.0) mg/dL BUN/Creatinine Ratio 10.50 L (12.00-20.00) Ratio Glucose 116 H (70-110) mg/dL Assessment and Plan Assessment: Postop day 1: L5-S1 minimally invasive posterolateral interbody fusion Plan: -Appreciate risk assessment consultant and team management. -Activity: Ambulate QID, OOB all meals, up and about, limit lifting bending twis ting to less than 5 lbs. Use walker or cane if needed for stability. -Daily PT/OT, increase ambulation strength and balance. -Pain control: Adequate at this time -Meds: reviewed -GI ppx: senna, Miralax -DVT PPX: TEDS, SCDs -Hygiene: Maintain incision clean and dry. May change dressing as needed, please document in notes if performed. Meticulous cleaning after BMs away from the incision site -Encourage IS 10x/hr -Dispo: Discharge home tomorrow 11/27/2024. *I reviewed and discussed this case with my attending Dr. Soria, whom has reviewed this chart and films and is in agreement with assessment and plan of care as outlined above. I have personally seen and examined the patient, performed the documentation and the assessment and plan as written. Number of minutes spent on the visit: 20m.
[2024-11-26] MEDS: HYDROcodone/APAP 7.5-325MG 1 EACH TAB PO ONE (11:33)
[2024-11-26] MEDS: HYDROmorphone 0.5 MG/0.5 ML SYRINGE IVP PRN (14:36)
[2024-11-26] MEDS: HYDROcodone/APAP 10-325MG 1 EACH TAB PO PRN (16:23)
--- NOTE | 2024-11-27 06:31 | P.CONS ---
History of Present Illness - Reason for Consult Consult date: 11/26/24 Medical management, status post L5-S1 fusion - History of Present Illness This is a pleasant 54-year-old female who was admitted under orthopedic services Dr. Soria and is status post L5-S1 minimally invasive posterior lateral interbody fusion. Patient is reporting significant amount of pain although does not want to take a lot of high-dose narcotics as patient has extreme nausea with vomiting. Medications being adjusted per orthopedics and patient does have [place] and discussed with her about taking antinausea medications with this medication along with a small meal or crackers to assist with some of the nausea as patient is reporting 10/10 pain. Patient does have an LSO brace at home although was instructed to work with physical therapy per orthopedics. Patient has a past medical history of stage IV left breast cancer back in 2007, osteoarthritis, degenerative disc disease, former smoker and reports to quitting 4 months ago, reports rarely using alcohol and THC. Patient reports was able to work with physical therapy and plans on going home once discharged. Continue pain management and DVT prophylaxis per orthopedics. REVIEW OF SYSTEMS: CONSTITUTIONAL: No fever, no malaise, no fatigue. HEENT: No recent visual problems or hearing problems. Denied any sore throat. CARDIOVASCULAR: No chest pain, orthopnea, PND, no palpitations, no syncope. PULMONARY: No shortness of breath, no cough, no hemoptysis. GASTROINTESTINAL: No diarrhea, no nausea, no vomiting, no abdominal pain. NEUROLOGICAL: No headaches, no weakness, no numbness. HEMATOLOGICAL: Denies any bleeding or petechiae. GENITOURINARY: Denies any burning micturition, frequency, or urgency. MUSCULOSKELETAL/RHEUMATOLOGICAL: Reports significant back and hip pain that is radiating down the legs bilaterally ENDOCRINE: Denies any polyuria or polydipsia. The rest of the 14-point review of systems is negative. PHYSICAL EXAMINATION: GENERAL: The patient is alert and oriented x3, appears frustrated. Well developed, well nourished. Thin built HEENT: Pupils are round and equally reacting to light. EOMI. No scleral icterus. No conjunctival pallor. Normocephalic, atraumatic. No pharyngeal erythema. No thyromegaly. CARDIOVASCULAR: S1 and S2 muffled PULMONARY: Diminished breath sounds bilaterally otherwise chest is clear to auscultation, no wheezing or crackles. ABDOMEN: Soft, thin nontender, nondistended, normoactive bowel sounds. No palpable organomegaly. MUSCULOSKELETAL: No joint swelling or deformity. EXTREMITIES: No cyanosis, clubbing, or pedal edema. NEUROLOGICAL: Gross neurological examination did not reveal any focal deficits. SKIN: No rashes. Assessment: Status post L5-S1 minimally invasive posterior lateral interbody fusion History of significant degenerative disc disease with chronic back pain and lower extremity weakness History of stage IV left breast cancer in 2007, status post lumpectomy and treatment Former smoker, reports to quitting 4 months ago THC use History of degenerative disc disease History of osteoarthritis GI prophylaxis DVT prophylaxis Full code Plan: Patient was admitted under orthopedics and is status post minimally invasive L5- S1 fusion and reports to significant 10/10 pain. Medications being adjusted as patient also becomes nauseated with [place] and reports low dose is not helping and was given Toradol with no relief. Orthopedics to adjust pain medications and instructed patient to take antinausea medications with pain medications and will continue supportive care Encouraged increased activity as tolerated Encourage small frequent meals Patient was evaluated by PT/OT therapy reports will be going home on discharge We will continue to follow with orthopedics during hospitalization. Thank you kindly for this consultation. The impression and plan of care has been dictated by Nereida Duong, Nurse Practitioner as directed. Dr. Patricia MD I have performed a history and examination and MDM of this patient, discussed the same with the dictator, and agree with the dictator's assessment and plan as written ,documented as a scribe. Based on total visit time, I have performed more than 50% of the visit. Past Medical History Past Medical History: Cancer, Musculoskeletal Disorder, Osteoarthritis (OA) Additional Past Medical History / Comment(s): Hx stage 4 left breast cancer stage 4 with lumpectomy radiation and chemo [id number]. Bone spurs, spondylosis, degenerative disc disease. History of Any Multi-Drug Resistant Organisms: MRSA Year Discovered:: 2007 MDRO Source:: left breast Past Surgical History: Breast Surgery Additional Past Surgical History / Comment(s): Left breast lumpectomy. Past Anesthesia/Blood Transfusion Reactions: No Reported Reaction Past Psychological History: No Psychological Hx Reported Smoking Status: Former smoker Past Alcohol Use History: Rare Additional Past Alcohol Use History / Comment(s): Quit smoking 4 months ago, smoked 1 ppd for greater than 30 years. Past Drug Use History: Marijuana Additional Drug Use History / Comment(s): Daily Marijuana use, aware to hold X24 hours prior. - Past Family History Father Family Medical History: Cancer Additional Family Medical History / Comment(s): Father at age 70 due to kidney cancer. Parkinsons. Mother Additional Family Medical History / Comment(s): No major medical problems. Brother(s) Family Medical History: Asthma Additional Family Medical History / Comment(s): Patient does not have any s isters. Patient doesn't have any children. Medications and Allergies Home Medications Medication Instructions Recorded Confirmed Type HYDROcodone/APAP 5-325MG [[place] 1 tab PO Q8H PRN 11/22/24 11/22/24 History 5-325] Allergies Allergy/AdvReac Type Severity Reaction Status Date / Time aspirin AdvReac Vomiting Verified 11/25/24 06:13 codeine AdvReac Nausea & Verified 11/25/24 06:13 Vomiting & Diarrhea fentanyl AdvReac Nausea & Verified 11/25/24 06:13 Vomiting Physical Exam Vitals: Vital Signs Temp Pulse Pulse Resp BP Pulse Ox 11/26/24 08:00 99.1 F 83 18 109/67 95 11/26/24 02:00 98.4 F 94 18 112/68 11/25/24 20:00 98.2 F 99 18 162/81 11/25/24 14:08 64 136/78 100 11/25/24 13:50 92 161/94 100 11/25/24 13:15 62 16 122/80 100 11/25/24 13:00 76 16 130/74 98 11/25/24 12:45 67 16 135/81 100 11/25/24 12:30 67 14 154/94 99 11/25/24 12:00 66 14 149/86 99 11/25/24 11:45 63 16 150/77 99 11/25/24 11:30 70 16 148/80 99 11/25/24 11:15 65 14 144/84 98 11/25/24 11:00 67 16 136/80 100 11/25/24 10:45 78 18 154/101 100 Intake and Output 11/25/24 11/26/24 11/26/24 22:59 06:59 14:59 Other: Voiding Method Toilet # Voids 1 1 Results CBC & Chem 7: 11/26/24 03:51 11/26/24 03:51 Labs: Abnormal Lab Results - Last 24 Hours (Table) 11/26/24 11/26/24 Range/Units 03:51 03:51 RBC 3.50 L (4.10-5.20) X 10*6/uL Hgb 11.4 L (12.0-15.0) g/dL Hct 35.1 L (37.2-46.3) % MCV 100.3 H (80.0-97.0) FL MCH 32.6 H (27.0-32.0) pg BUN 6.3 L (9.0-27.0) mg/dL BUN/Creatinine Ratio 10.50 L (12.00-20.00) Ratio Glucose 116 H (70-110) mg/dL
[2024-11-27 07:33] VITALS: BP 116/70; PULSE 75; TEMP 98.8
[2024-11-27] MEDS: SENNOSIDES-DOCUSATE SODIUM 1 EACH TAB PO SCH (08:28)
--- NOTE | 2024-11-27 10:11 | P.PN ---
Subjective Progress Note Date: 11/27/24 Principal diagnosis: 1. L5-S1 SPONDYLOSIS WITH STENOSIS AND RADICULOPATHY 2. L5-S1 DDD 3. BLE RADICULOPATHY 4. BLE WEAKNESS 5. LOW BACK PAIN Patient seen and examined this morning. Patient is resting comfortably in bed. Patient was able to reposition herself on her side for assessment of her lumbar incision. Surgical incisions to the paralumbar spine, edges are well-ap proximated with polly intact. No active drainage. New dressings have been applied. Patient does report that her pain is better managed today and feels comfortable going home. RN did notify that patient was stating she was ready to go home in order to obtain liquid Dilaudid off the street. Educated patient on the use of her discharge pain medications. Patient verbalizes understanding. LSO brace and rolling walker is present in room. Discharge instructions have been discussed. Objective - Vital Signs Vital signs: Vital Signs Temp 98.8 F 11/27/24 07:32 Pulse 75 11/27/24 07:32 Resp 18 11/27/24 07:32 BP 116/70 11/27/24 07:32 Pulse Ox 96 11/27/24 07:32 FiO2 Intake & Output 11/26/24 11/27/24 11/27/24 18:59 06:59 18:59 Other: Voiding Method Toilet Toilet # Voids 3 1 # Bowel Movements 0 - Exam Physical Examination General: The patient is awake and alert, in no acute distress. Skin: Skin is warm and dry with no obvious rashes or lesions. Surgical incisions to the paralumbar spine, edges are well-approximated with polly intact. No active drainage. New dressings applied. Eye: Pupils are equal, round and reactive to light, extra-ocular movements are intact; there is normal conjunctiva bilaterally. Neck: The neck is supple, there is no tenderness and ROM intact. Respiratory: Respirations are non-labored. Gastrointestinal: Soft, non-distended, non-tender abdomen. Back: There is no tenderness to palpation in the midline, paralumbar, parathoracic or buttocks region. There is no obvious deformity. Musculoskeletal: ROM limited secondary to pain and stiffness from surgical p rocedure. Right: Shoulder abduction 5/5, elbow flexors 5/5, wrist dorsiflexors 5/5. finger abductor 5/5, welding machine operator resistance 5/5, hip flexor 5/5, knee flexor 5/5, ankle dorsiflexor 5/5, ankle plantarflexion 5/5 and extensor hallucis 5/5 Left: Shoulder abduction 5/5, elbow flexors 5/5, wrist dorsiflexors 5/5. finger abductor 5/5, welding machine operator resistance 5/5, hip flexor 5/5, knee flexor 5/5, ankle dorsiflexor 5/5, ankle plantarflexion 5/5 and extensor hallucis 5/5. Neurological: CN 2-12 intact. There are no obvious motor or sensory deficits. Movement and coordination equal and intact. Sensory exam to light touch intact C5-T1 and intact from L2-S1. Reflexes 2/4 in bilateral upper and lower extremities. Negative Hoffmans, babinski, and clonus signs. Psychiatric: Cooperative, appropriate mood & affect, normal judgment. - Labs CBC & Chem 7: 11/26/24 03:51 11/26/24 03:51 Assessment and Plan Assessment: Postop day 2: L5-S1 minimally invasive posterolateral interbody fusion Plan: -Appreciate learning and development consultant and team management. -Activity: Ambulate QID, OOB all meals, up and about, limit lifting bending twisting to less than 5 lbs. Use walker or cane if needed for stability. -Daily PT/OT, increase ambulation strength and balance. -Pain control: Adequate at this time -Meds: reviewed -GI ppx: senna, Miralax -DVT PPX: TEDS, SCDs -Hygiene: Maintain incision clean and dry. May change dressing as needed, please document in notes if performed. Meticulous cleaning after BMs away from the incision site -Encourage IS 10x/hr -Dispo: Discharge home later this morning *I reviewed and discussed this case with my attending Dr. Soria, whom has reviewed this chart and films and is in agreement with assessment and plan of care as outlined above. I have personally seen and examined the patient, performed the documentation and the assessment and plan as written. Number of minutes spent on the visit: 20m.
--- NOTE | 2024-11-27 10:21 | P.DS ---
Providers Date of admission: 11/25/24 Expected date of discharge: 11/27/24 Attending physician: Jonathan Soria DO Consults: 11/25/24 10:55 Consult Physician Routine Consulting Provider: Som Cho Reason/Comments: Medical Management s/p L5-S1 MIS PLIF Do you want consulting provider notified?: Yes Primary care physician: Kory Riverton Hospital Course: Hospital Course: The patient was evaluated preoperatively and found to have the diagnosis ofS1 spondylosis with stenosis. They underwent appropriate preoperative care and were willing to undergo the intended procedure. They underwent a successful L5-S1 minimally invasive PLIF, were recovered appropriately and sent to the floor. While on the floor they worked with physical therapy, occupational therapy and nursing to enhance their recovery experience. Their pain was well controlled through their stay and they were started on appropriate medications, DVT ppx modalities, activity and dietary needs. Daily labs were monitored closely, and transfusions were only used when necessary. Medicine as well as other consulting services have made their input and have helped with our team approach and multidisciplinary care. PT milestones have been met and passed and they have made the recommendation of home for this patient and treating providers agree with this care path. The patient will be discharged home with appropriate medications, instructions and follow-up information and in stable condition. Patient Condition at Discharge: Good Plan - Discharge Summary Discharge Rx Participant: No New Discharge Prescriptions: New cefaDROXiL [Duricef] 500 mg PO Q12HR #10 cap Cyclobenzaprine [Flexeril] 5 mg PO TID PRN #40 tablet PRN Reason: Muscle Spasm HYDROcodone/APAP 10-325MG [[place] 10-325] 1 tab PO Q4-6H PRN #40 tab PRN Reason: Pain Sennosides/Docusate Sodium [Senna Plus 8.6-50 mg Tablet] 1 each PO DAILY PRN #20 tab PRN Reason: Constipation Naproxen [Naprosyn] 500 mg PO BID 14 Days #28 tablet No Action HYDROcodone/APAP 5-325MG [[place] 5-325] 1 tab PO Q8H PRN PRN Reason: Pain Discharge Medication List HYDROcodone/APAP 5-325MG [[place] 5-325] 1 tab PO Q8H PRN 11/22/24 [History] Cyclobenzaprine [Flexeril] 5 mg PO TID PRN #40 tablet 11/27/24 [Rx] HYDROcodone/APAP 10-325MG [[place] 10-325] 1 tab PO Q4-6H PRN #40 tab 11/27/24 [Rx] Naproxen [Naprosyn] 500 mg PO BID 14 Days #28 tablet 11/27/24 [Rx] Sennosides/Docusate Sodium [Senna Plus 8.6-50 mg Tablet] 1 each PO DAILY PRN #20 tab 11/27/24 [Rx] cefaDROXiL [Duricef] 500 mg PO Q12HR #10 cap 11/27/24 [Rx] Follow up Appointment(s)/Referral(s): Jonathan Soria DO [Doctor of Osteopathic Medicine] - 12/11/24 10:15 am Activity/Diet/Wound Care/Special Instructions: Spine Discharge and Recovery Instructions Date of Surgery: 11/25/2024 Diagnosis: L5-S1 spondylosis with stenosis Procedure: L5-S1 CT PLIF Medications: See medication list All medication refills should be obtained through your primary care doctor or your clinic spine surgeon. Please discuss prescription refills at your follow up appointment. Do not call the hospital for medication refills. Activity: Encourage ambulation with assist of walker, Up and about 6-8x daily PT/OT daily work on balance, strength and mobility Up in chair with all meals Shower daily Brace: Use brace when up and about, do not wear in bed or shower Dressing: Leave your dressing in place for a total of 3 days post operatively. Then you may remove your dressing and leave open to air. Keep the area clean and if not able to keep area clean, then cover with sterile gauze and tape. Showering: You may shower 3 days after your procedure allowing soap and water to run over incision. Do not scrub. Do not soak. Blot dry. Follow up: Please confirm a follow up appointment with your surgeon 2 weeks post operatively. Please make an appointment to follow up with your PCP in 1-2 weeks after surgery for evaluation '3 phase, 3-week plan' POST OP WEEKS 1-3 1. Lifting/carrying/pushing/pulling limited to less than 5 pounds. 2. Do not sit for longer than 15 minutes at one time. Get up and walk around. Prolonged sitting is NOT advised. If you lay down, see if you can tolerate laying down on you front (belly side) 3. Walk for periods of 15 minutes = 1 mile but no longer; do it multiple times times each day. 4. Ice your low back after activity. POST OP WEEKS 3-6 1. Lifting limited to less than 20 pounds. 2. Do not sit for longer than 30 minutes at a time. Frequently change positions. Use a sit-to stand workstation or take frequent breaks from sitting if you have returned to work. 3. Walk for 30 minutes each day. If possible, do these three or more times a day POST OP WEEKS 6+ At your 6-week appointment we will give you a physical therapy referral to focus on a core stabilization and strengthening program. You should also work on leg & buttock strengthening, hamstring & quadriceps stretching, and continue a low impact aerobic activity program such as swimming, walking, or riding a stationary bicycle. During the initial 6 weeks after your surgery, you are at the highest risk of re-injuring your spine. You should generally avoid BLT's (bending, lifting and twisting combination motions) and follow the above guidelines to reduce the chance of reinjury. You can anticipate post op appointments in our office at approximately 3 weeks and 6 weeks after your surgery. INCISION CARE: If your incision is not draining you do NOT need to cover it with a dressing. Keep your incision clean, dry and intact. In most cases, we apply skin glue, polly or sutures to the incision at the time of surgery. This will be like a crust or have the appearance of a scab and will fall off in time on its own. The stitches or polly need to be removed at 3 weeks post op appointment. You may begin to shower 3 days after surgery (this allows the glue to iyer well). However, please avoid scrubbing the incision site or peeling off any of the skin glue. This will ensure optimal healing of your incision. Also, during this time avoid soaking the incision area in water - this includes swimming pools, hot tubs or baths. No ointments, lotions or oils on the incision until your surgeon allows. Leave polly, sutures or glue in place. Neurological dysfunction that comes on suddenly can also be a sign of a stroke. Below some common symptoms of a stroke are listed: B - balance difficulty such as sudden onset walking or leaning to one side - NEW E - eye problem such as sudden double vision or trouble seeing on one side - NEW F - Facial weakness or numbness on one side - NEW A - Arm or leg weakness or numbness on one side - NEW S - Slurred speech or difficulty with word finding - NEW T - Time is BRAIN! Call 911 as soon as you recognize these symptoms Diet: Consume a regular diet rich in vegetables and lean protein such as chicken or fish. You should consume in a ratio of approximately 20% fats|40% carbohydrates|40%protein. Vegetables, sweet potatoes, brown rice or quinoa are examples of good carbohydrates. Chips, white bread, cookies and sweets/sugar are examples of bad carbohydrates. Limit your bad carbs, go wild with good carbs. "Life's Simple 7" Guidelines as per [place] [employer] These will help you reclaim your life after surgery and rug cleaner helper in your recovery, keeping in mind your restrictions. (1) Get Active. Physical activity can help people lose weight, control high blood pressure and cholesterol, feel emotionally better, and sleep better. (2) Control Cholesterol. Avoid a diet high in saturated fat, trans fat, & cholesterol. Limit whole milk & cream, ice cream, butter, egg yolks, processed meats (like sausage and hot dogs), and fatty meats. Choose healthy foods that are low in saturated fat, trans fat and cholesterol which include: Fruits and vegetables, fiber rich grain products (like whole grain pasta and brown rice), lean meat such as chicken, fish, nuts, seeds, and legumes. (3) Eat Better. Eat small portions. Shop at the grocery with a list and do not stray from it. Tips for a healthy diet include: Limit sodium intake to less than 1500mg daily, avoid prepackaged, processed, and fast foods, choose a diet rich in fruits, vegetables, and whole grain, high fiber foods, and limit saturated & cholesterol in your diet. (4) Manage Blood Pressure. If you have high blood pressure, you should have a cuff at home so that you can check your blood pressure regularly. Be sure you have a good cuff. An arm one is generally better than a wrist one. Bring the cuff to a doctor's appointment to validate that the measurements that your cuff are taking are accurate. Take your blood pressure twice daily when you are sitting down and relaxing. Record the numbers in a log and bring this log with you to your doctors' appointments. (5) Lose Weight if your BMI is above 25. A healthy BMI is between 19-25. To calculate Your BMI, you may use a Standard BMI Calculator on the NIH BMI website: <www.nhlbi.nih.gov/guidelines/obesity/BMI/bmicalc.htm>. Weigh oneself daily. If you are overweight, set a goal to lose weight. A pound a week loss if needed is a good target. (6) Reduce Blood Sugar. Limit foods and liquids with "added sugars." (Added sugars include sucrose, fructose, glucose, maltose, dextrose, high fructose corn syrup, corn syrup, concentrated fruit juice and honey). (7) Stop Smoking. If you smoke, quitting smoking is one of the best things that you can do for your health. Smoking increases your risk of heart attack, stroke, and peripheral vascular disease, which is a build-up of plaque in your arteries. Please discard all the cigarettes and lighters in your house. Have a plan for what you will do when you have the urge to smoke. Direct and second- hand smoke shortens your life as well as the lives of your family, friends and others around you. For your health and the health of those around you, please consider quitting! Proper Bending Body Mechanics: Maintain a wide stance with one foot slightly in front of the other. Keep your back straight. Bend utilizing the strength in your hips and knees. Do not bend at the waist. Maintain the lifted object at your waist-level close to your body. Avoid lifting weight that causes immediately pain or pain anywhere in the body afterwards. Smoking/Nicotine If there was ever one thing that you could do to increase your overall health, decrease your risk of cardiovascular problems by about 39% the second you make the choice, it is to STOP SMOKING. Your body's most instant gratification is the second you stop smoking. We have all heard the studies, read the articles but it is true, smoking is extremely bad for your overall health, and moreover it is detrimental to your bone health. Nicotine, IN ANY FORM, kills bone cells, prevents your body from healing fractures, and significantly prolongs healing after surgery. In spine surgery specifically, it increases your risk of not healing your bones to create a fusion and increases your risk of having a revision surgery due to this up to 60%. I know it is hard. I know it feels impossible. But there are ways. Take control of your life. We are here to help you through it. And when you are ready, ask us and we can direct you to help if you desire. Use the START Plan to Quit Smoking (please visit the Helpguide.org website listed below for more information): S = Set a quit date. Choose a date within the next 2 weeks, so you have enough time to prepare without losing your motivation to quit. If you mainly smoke at work, quit on the weekend, so you have a few days to adjust to the change. T = Tell family, friends, and co-workers that you plan to quit. Let your friends and family in on your plan to quit smoking and tell them you need their support and encouragement to stop. Look for a quit karey who wants to stop smoking as well. You can help each other get through the rough times. A = Anticipate and plan for the challenges you'll face while quitting. Most people who begin smoking again do so within the first 3 months. You can help yourself make it through by preparing ahead for common challenges, such as nicotine withdrawal and cigarette cravings. R = Remove cigarettes and other tobacco products from your home, car, and work. Throw away all your cigarettes (no emergency pack!), lighters, ashtrays, and matches. Wash your clothes and freshen up anything that smells like smoke. Shampoo your car, clean your drapes and carpet, and steam your furniture. T = Talk to your doctor about getting help to quit. Your doctor can prescribe medication to help with withdrawal and suggest other alternatives. If you can't see a doctor, you can get many products over the counter at your local pharmacy or grocery store, including the nicotine patch, nicotine lozenges, and nicotine gum. Resources for Quitting Smoking: <https://www.[place].gov/documents/[facility]/Quit_Tobacco_Resources_for_patients_313 480_7.pdf> Supplementation: Take recommended dosages of Vitamin D and Calcium to help fortify your bones and help them to heal. See your health maintenance packet for dosages and recommended levels. DVT/VTE prophylaxis: You will be given compression stockings from the hospital. Wear these daily for the first two weeks after surgery. You may take them off at night. You may be prescribed a medication to help thin your blood. Take this as directed. If you are not prescribed this medication, early and frequent ambulation has been shown to be the best prophylaxis to deep vein thrombosis and sequelae related to this event.
== END 2024-11-27 12:50 | disposition home or self-care (01) ==
LOC: OR 05:39 → 4SSUR 09:56 → OR 11-27 12:50
PROVIDERS: ATTEND Orthopaedic Surgery
DX: M47.27 Other spondylosis with radiculopathy, lumbosacral region (principal); M51.17 Intervertebral disc disorders with radiculopathy, lumbosacral region; M48.07 Spinal stenosis, lumbosacral region; M43.8X7 Other specified deforming dorsopathies, lumbosacral region; J44.9 Chronic obstructive pulmonary disease, unspecified; Z87.891 Personal history of nicotine dependence; Z85.3 Personal history of malignant neoplasm of breast; Z86.14 Personal history of Methicillin resistant Staphylococcus aureus infection; Z88.6 Allergy status to analgesic agent; Z88.5 Allergy status to narcotic agent; Z88.8 Allergy status to other drugs, medicaments and biological substances
CPT/HCPCS: 22612; 22853; 61783; 20930; 20936; 22842; 97161; 80048; 85025; 72100; 72131; C1713; C1734; J0690 ×3; J2405 ×2; J1171 ×4; J1885; J0665